=== PATIENT | female | born 1945 | race Caucasian/White ===

== ENCOUNTER → 2016-12-21 | Outpatient (CLI) | payer MEDICARE, OTHER ==
[~2016-12-21] MED LIST: ASPIRIN 81M81 MG/TA2 PO; B-121000 MCG PO; CEPHALEXIN500 M1 PO; COMPAZINE 110 MG/TAB PO; COZAAR 50MG50 MG/TAB PO; CRANBERRY500 M3 PO; FERRO-TIME325 MG PO; FLONASE NASAL S16 GM NS; HCTZ 25MG TAB25 MG PO; K-DUR20 MEQ PO; LEVAQUIN 750MG750 M1 PO; MIRALAX PA17 GM/Dose PO; MOBIC15 MG PO; MUCINEX 60600 MG/TA1 PO; NORVASC 10MG10 MG PO; NOXAFILTAB PO; OSTEO-BI-FLEX 21 TAB PO; PRAVACHOL10 MG PO; PRILOSEC 20MG20 MG PO; PROCRIT2000 SQ; REGLAN 10MG10 MG/TAB PO; SENNA-LAX8.6 MG PO; TYLENOL 325MG325 MG PO; ULTRAM 50MG TAB50 MG PO; VENCLEXTA100 MG PO; VERELAN180 MG PO; VIDAZA100 MG IV; VIDAZA100 MG SQ; VITAMIN C500 MG PO; ZOFRAN 4MG T4 MG/TAB PO; ZOVIRAX400 MG PO; ZYLOPRIM 300MG300 MG PO; [UNRECOGNIZED DRUG - OTHER] PO
== END ==
LOC: MC.RAD 08:45
DX: Z12.31 Encounter for screening mammogram for malignant neoplasm of breast (principal)

== ENCOUNTER 2018-01-20 07:04 | Outpatient (CLI) | payer MEDICARE, OTHER ==
[~2018-01-20] VITALS: Ht 172.7 cm; Wt 125.5 kg
[~2018-01-20 07:04] MED LIST changes: -B-121000 MCG PO; -CEPHALEXIN500 M1 PO; -COMPAZINE 110 MG/TAB PO; +CRANBERRY1 CAP PO; -CRANBERRY500 M3 PO; -FERRO-TIME325 MG PO; -K-DUR20 MEQ PO; -LEVAQUIN 750MG750 M1 PO; -MIRALAX PA17 GM/Dose PO; -MOBIC15 MG PO; -MUCINEX 60600 MG/TA1 PO; -NORVASC 10MG10 MG PO; -NOXAFILTAB PO; -PROCRIT2000 SQ; -SENNA-LAX8.6 MG PO; -ULTRAM 50MG TAB50 MG PO; -VENCLEXTA100 MG PO; -VIDAZA100 MG IV; -VIDAZA100 MG SQ; -ZOFRAN 4MG T4 MG/TAB PO; -ZOVIRAX400 MG PO; -ZYLOPRIM 300MG300 MG PO; -[UNRECOGNIZED DRUG - OTHER] PO
[2018-01-20] MEDS ORDERED: MOBIC15 MG PO (08:15)
[2018-01-20 09:40] VITALS: BP 134/71; PULSE 68; TEMP 98.4
[2018-01-20 10:03] VITALS: BP 129/62; PULSE 68; TEMP 98.4
[2018-01-20 10:18] VITALS: BP 136/72; PULSE 70; TEMP 98.4
[2018-01-20 10:33] VITALS: BP 132/62; PULSE 66; TEMP 98.4
[2018-01-20 11:00] VITALS: BP 132/62; PULSE 70; TEMP 98.4
[2018-01-20 12:48] LABS: BASO % 0.4 % (0.0-2.0); EOS % 0.6 % (0-4.0); GRAN # 2.8 (1.4-6.5); GRAN % 56.2 % (42.2-75.2); LYMPH # 1.7 (1.2-3.4); LYMPH % 34.8 % (20.0-51.0); MEAN CELL VOLUME 117 fl (80.0-100.0); MEAN CORPUSCULAR HEMOGLOBIN 39 pg (27.0-31.0); MEAN CORPUSCULAR HGB CONC 33 g/dl (33.0-37.0); MEAN PLATELET VOLUME 8.8 fl (7.4-10.4); MONO # 0.4 (0.1-0.6); MONO % 7.8 % (1.7-9.3); PLATELET COUNT 197 K/mm3 (130-400); RED BLOOD COUNT 2.57 M/mm3 (4.10-5.30); REDCELL DISTRIBUTION WIDTH-CV 12.4 % (11.5-14.5)
== END 2018-01-20 11:00 | disposition home or self-care (01) ==
LOC: SDCO 07:04
PROVIDERS: Pathology Anatomic Pathology & Clinical Pathology
DX: D72.829 Elevated white blood cell count, unspecified (principal); R71.8 Other abnormality of red blood cells; I10 Essential (primary) hypertension; E78.5 Hyperlipidemia, unspecified; M19.90 Unspecified osteoarthritis, unspecified site; Z88.0 Allergy status to penicillin; Z88.2 Allergy status to sulfonamides; Z88.8 Allergy status to other drugs, medicaments and biological substances; Z90.49 Acquired absence of other specified parts of digestive tract; Z80.8 Family history of malignant neoplasm of other organs or systems; Z80.3 Family history of malignant neoplasm of breast; Z80.49 Family history of malignant neoplasm of other genital organs
CPT/HCPCS: J2704; J3010

== ENCOUNTER → 2018-02-06 | Outpatient (CLI) | payer MEDICARE, OTHER ==
[~2018-02-06] MED LIST changes: +MOBIC15 MG PO
== END ==
LOC: MC.RAD 15:50
DX: Z12.31 Encounter for screening mammogram for malignant neoplasm of breast (principal)

== ENCOUNTER 2018-03-28 12:55 | Outpatient (RCR) | payer MEDICARE, OTHER ==
[2018-03-28] VITALS (11 sets, daily range): BP systolic 103–130; BP diastolic 42–87; PULSE 62–77; TEMP 97.3–98.5
[~2018-03-28] VITALS: Ht 172.7 cm; Wt 124.0 kg
[~2018-03-28 12:55] MED LIST changes: -CRANBERRY1 CAP PO; +CRANBERRY500 M3 PO
[2018-03-28] MEDS ORDERED: FERRO-TIME325 MG PO (13:48)
[2018-03-28] MEDS ORDERED: PROCRIT2000 SQ (13:49)
== END 2018-03-28 18:52 | disposition home or self-care (01) ==
LOC: EUO 12:55
DX: D46.9 Myelodysplastic syndrome, unspecified (principal)
CPT/HCPCS: J7050; P9016

== ENCOUNTER 2018-04-18 10:02 | Outpatient (RCR) | payer MEDICARE, OTHER ==
[2018-04-18] VITALS (10 sets, daily range): BP systolic 99–133; BP diastolic 47–65; PULSE 55–78; TEMP 97.7–97.8
[~2018-04-18] VITALS: Ht 172.7 cm; Wt 125.8 kg
[~2018-04-18 10:02] MED LIST changes: +FERRO-TIME325 MG PO; +PROCRIT2000 SQ
--- NOTE | 2018-04-18 12:09 | NUR ---
Increased rate to 200 ml/hr. VSS. Will continue to monitor
--- NOTE | 2018-04-18 15:44 | NUR ---
INT discontinued intact.
== END 2018-04-18 15:45 | disposition home or self-care (01) ==
LOC: EUO 10:02
DX: D53.9 Nutritional anemia, unspecified (principal); D46.Z Other myelodysplastic syndromes
CPT/HCPCS: J7050; P9016

== ENCOUNTER 2018-04-28 07:00 | Outpatient (CLI) | payer MEDICARE, OTHER ==
[~2018-04-28] VITALS: Ht 172.7 cm; Wt 124.5 kg
[2018-04-28 08:20] VITALS: BP 137/72; PULSE 76; TEMP 98
[2018-04-28 08:20] LABS: MEAN CELL VOLUME 105 fl (80.0-100.0); MEAN CORPUSCULAR HGB CONC 33 g/dl (33.0-37.0); MEAN PLATELET VOLUME 9.3 fl (7.4-10.4); PLATELET COUNT 50 K/mm3 (130-400); RED BLOOD COUNT 2.53 M/mm3 (4.10-5.30); REDCELL DISTRIBUTION WIDTH-CV 21.4 % (11.5-14.5)
[2018-04-28 08:21] LABS: HEMATOCRIT 26.6 % (37.0-47.0); HEMOGLOBIN 8.7 g/dl (12.5-16.0); MEAN CORPUSCULAR HEMOGLOBIN 34 pg (27.0-31.0)
--- NOTE | 2018-04-28 08:33 | NUR ---
Pt to procedure at this time.
[2018-04-28 08:38] LABS: EOSINOPHIL 4 % (0-4); LYMPHOCYTE 49 % (20.0-51.0); NEUTROPHILS 21 % (42.0-75.2)
[2018-04-28 08:39] LABS: ANISOCYTOSIS 2+; PLATELET ESTIMATE DECREASED (NORMAL)
[2018-04-28 09:21] VITALS: BP 132/68; PULSE 86
--- NOTE | 2018-04-28 09:28 | NUR ---
Pt returned from procedure,report from Nroman Torres.Pt observed alert and orientated x 3,respirations even and unlabored.
[2018-04-28 09:45] VITALS: BP 80/54; PULSE 73
[2018-04-28 10:00] VITALS: BP 118/62; PULSE 68
--- NOTE | 2018-04-28 10:14 | NUR ---
Discharge instructions given to pt.Pt verbalizes understanding.INT removed,catheter tip intact.
--- NOTE | 2018-04-28 10:24 | NUR ---
Pt escortedout via wheelchair by this nurse.
== END 2018-04-28 10:25 | disposition home or self-care (01) ==
LOC: SDCO 07:00
PROVIDERS: Pathology Anatomic Pathology & Clinical Pathology
DX: D72.821 Monocytosis (symptomatic) (principal); D61.818 Other pancytopenia; D53.9 Nutritional anemia, unspecified; M19.90 Unspecified osteoarthritis, unspecified site; E78.5 Hyperlipidemia, unspecified; I10 Essential (primary) hypertension; Z88.0 Allergy status to penicillin; Z88.2 Allergy status to sulfonamides; Z88.8 Allergy status to other drugs, medicaments and biological substances; Z87.891 Personal history of nicotine dependence
CPT/HCPCS: J2405; J2704; J3010; J7120

== ENCOUNTER 2018-05-09 09:26 | Outpatient (RCR) | payer MEDICARE, OTHER ==
[2018-05-09] VITALS (12 sets, daily range): BP systolic 110–145; BP diastolic 55–77; PULSE 67–83; TEMP 97.6–99
[2018-05-09] MEDS ORDERED: SENNA-LAX8.6 MG PO (11:21)
[2018-05-09] MEDS ORDERED: MIRALAX PA17 GM/Dose PO (11:22)
[2018-05-09] MEDS ORDERED: VIDAZA100 MG IV (11:25)
== END 2018-05-09 16:10 | disposition home or self-care (01) ==
LOC: EUO 09:26
DX: D46.Z Other myelodysplastic syndromes (principal); D53.9 Nutritional anemia, unspecified
CPT/HCPCS: J7050; P9016

== ENCOUNTER 2018-05-20 14:24 | Outpatient (RCR) | payer MEDICARE, OTHER ==
[~2018-05-20] VITALS: Ht 172.7 cm; Wt 124.7 kg
[~2018-05-20 14:24] MED LIST changes: +MIRALAX PA17 GM/Dose PO; +SENNA-LAX8.6 MG PO; +VIDAZA100 MG IV
[2018-05-20 16:01] VITALS: BP 128/61; PULSE 84; TEMP 98.5
[2018-05-20 16:19] VITALS: BP 113/72; PULSE 86; TEMP 98.7
[2018-05-20 16:34] VITALS: BP 118/55; PULSE 80; TEMP 98.5
[2018-05-20 17:02] VITALS: BP 112/49; PULSE 80; TEMP 98.3
== END 2018-05-20 17:03 | disposition home or self-care (01) ==
LOC: EUO 14:24
DX: D46.20 Refractory anemia with excess of blasts, unspecified (principal)
CPT/HCPCS: J7050; P9037

== ENCOUNTER 2018-06-09 07:27 | Outpatient (CLI) | payer MEDICARE, OTHER | END 2018-06-09 11:50 | disposition home or self-care (01) | LOC: SDCO 07:27 | DX: D69.6 Thrombocytopenia, unspecified (principal); D53.9 Nutritional anemia, unspecified; C92.00 Acute myeloblastic leukemia, not having achieved remission; D61.818 Other pancytopenia; D46.9 Myelodysplastic syndrome, unspecified; M19.90 Unspecified osteoarthritis, unspecified site; E78.5 Hyperlipidemia, unspecified; I10 Essential (primary) hypertension; K21.9 Gastro-esophageal reflux disease without esophagitis; M54.30 Sciatica, unspecified side; Z87.891 Personal history of nicotine dependence; Z79.82 Long term (current) use of aspirin ==

== ENCOUNTER 2018-08-04 06:58 | Outpatient (CLI) | payer MEDICARE, OTHER ==
[~2018-08-04] VITALS: Ht 175.4 cm; Wt 118.0 kg
[~2018-08-04 06:58] MED LIST changes: +MUCINEX 60600 MG/TA1 PO; +VENCLEXTA100 MG PO; +ZOFRAN 4MG T4 MG/TAB PO; +ZOVIRAX400 MG PO; +ZYLOPRIM 300MG300 MG PO; +[UNRECOGNIZED DRUG - OTHER] PO
[2018-08-04 08:30] VITALS: BP 136/57; PULSE 82; TEMP 98.4
[2018-08-04] MEDS ORDERED: COMPAZINE 110 MG/TAB PO (08:43)
[2018-08-04] MEDS ORDERED: VIDAZA100 MG SQ (08:44)
[2018-08-04] MEDS ORDERED: PRILOSEC 20MG20 MG PO (08:46)
--- NOTE | 2018-08-04 08:47 | NUR ---
Reported to [facility] nurse platelet of 14 this am.
--- NOTE | 2018-08-04 08:54 | NUR ---
Pt to procedure at this time.
[2018-08-04 09:38] VITALS: BP 138/72; PULSE 89
[2018-08-04 09:55] VITALS: BP 122/63; PULSE 77
[2018-08-04 10:06] VITALS: BP 128/64; PULSE 63
[2018-08-04 10:20] VITALS: BP 127/74; PULSE 76
--- NOTE | 2018-08-04 10:21 | NUR ---
Discharge instructions given to pt.Pt verbalizes understanding.Pt escorted out via wheelchair by this nurse.
== END 2018-08-04 10:23 | disposition home or self-care (01) ==
LOC: EUO 06:58 → SDCO 09:00 → EUO 10:23
DX: C92.00 Acute myeloblastic leukemia, not having achieved remission (principal); D46.9 Myelodysplastic syndrome, unspecified; M19.90 Unspecified osteoarthritis, unspecified site; I10 Essential (primary) hypertension; E78.5 Hyperlipidemia, unspecified; K21.9 Gastro-esophageal reflux disease without esophagitis; Z79.82 Long term (current) use of aspirin; Z79.51 Long term (current) use of inhaled steroids; Z88.0 Allergy status to penicillin; Z88.2 Allergy status to sulfonamides; Z88.8 Allergy status to other drugs, medicaments and biological substances; Z90.49 Acquired absence of other specified parts of digestive tract
CPT/HCPCS: J2704; J3010; J7120

== ENCOUNTER 2018-08-18 09:00 | Outpatient (RCR) | payer MEDICARE, OTHER ==
--- NOTE | 2018-05-22 10:45 | NUR ---
Pt requests to come saturday for transfusion.Scheduled at 0830.
--- NOTE | 2018-05-22 11:32 | NUR ---
Per lab blood has to be ordered,pending arrival tomorrow at 1200.
[2018-05-23] VITALS (9 sets, daily range): BP systolic 109–128; BP diastolic 47–65; PULSE 82–95; TEMP 97.9–99
[2018-05-24 12:09] VITALS: PULSE 82; TEMP 99
--- NOTE | 2018-05-24 12:19 | NUR ---
Called blood bank, awaiting platelets. Per Salomon gave pre-medicaitons. Pt has 20G to LW. IVF infusing at slow rate until platelets arrive. Will continue to monitor.
[2018-05-24 15:57] VITALS: BP 94/50; PULSE 81; TEMP 98.7
--- NOTE | 2018-05-24 16:00 | NUR ---
Initiated platelet transfusion at this time. pT in bed resting with IV to R forearm and at bedside. Verified with 2nd RN. PT educated on s/sx of a transfusion reaction. Several hours of delays today d/t miscommunications with the [facility] but Systems Operator, family, patient and Dr. Latif up to date and pt has been a fantastic sport today waiting for these platelets to arrive for about 5+ hours. WIll transfuse and wait for first 15 minutes.
[2018-05-24 16:12] VITALS: BP 103/46; PULSE 60; TEMP 98.4
[2018-05-24 16:42] VITALS: BP 113/48; PULSE 78; TEMP 98.7
--- NOTE | 2018-05-24 17:40 | NUR ---
Pt escorted out by myself. Dc'd INT to LW, tip intact. Pt had no s/sx of a transfusion reaction, tolerated well. to drive home. Left with all belongings, criteria met.
[2018-05-27] VITALS (8 sets, daily range): BP systolic 91–123; BP diastolic 43–75; PULSE 80–84; TEMP 97.4–98.2
--- NOTE | 2018-05-29 13:00 | NUR ---
PICC intact right upper arm with sterile dressing change done with insertion site cleansed with chloraprep x 1, chlorhexidine impregnated disk, skin prep, stat lock, and tegaderm applied. no signs or symptoms of IV complications noted. no concerns voiced. re-wrapped with tong to protect catheter. to return next week for cares. voiced understanding of instructions.
[2018-05-29 13:14] VITALS: BP 125/50; PULSE 97; TEMP 98.6
[2018-05-29 13:19] LABS: MEAN CELL VOLUME 96 fl (80.0-100.0); MEAN CORPUSCULAR HGB CONC 34 g/dl (33.0-37.0); MEAN PLATELET VOLUME 11.3 fl (7.4-10.4); RED BLOOD COUNT 2.24 M/mm3 (4.10-5.30); REDCELL DISTRIBUTION WIDTH-CV 19.3 % (11.5-14.5)
[2018-05-29 13:27] LABS: ALBUMIN 3.4 gm/dL (3.5-5.0); BILIRUBIN,TOTAL 0.5 mg/dL (0.0-1.0); CALCIUM 8.4 mg/dL (8.4-10.2); CREATININE, serum 0.83 mg/dL (0.52-1.25); POTASSIUM 4.3 mmol/L (3.4-5.0); TOTAL PROTEIN 6.7 gm/dL (6.4-8.2)
[2018-05-29 13:29] LABS: HEMATOCRIT 21.4 % (37.0-47.0); HEMOGLOBIN 7.2 g/dl (12.5-16.0); MEAN CORPUSCULAR HEMOGLOBIN 32 pg (27.0-31.0)
[2018-05-29 13:30] LABS: PLATELET COUNT 19 K/mm3 (130-400)
[2018-05-29 13:49] LABS: BAND 12 % (0-10); LYMPHOCYTE 47 % (20.0-51.0); METAMYELOCYTE 2 % (0-0); NEUTROPHILS 21 % (42.0-75.2)
[2018-05-29 13:50] LABS: ANISOCYTOSIS 1+; PLATELET ESTIMATE DECREASED (NORMAL)
[2018-05-29 13:52] LABS: HYPOCHROMIA 1+
[2018-05-30] VITALS (10 sets, daily range): BP systolic 113–126; BP diastolic 49–58; PULSE 78–91; TEMP 97.2
[2018-05-30 08:45] LABS: PATHOLOGY DIFF REVIEW OK
[2018-06-02 08:30] VITALS: BP 148/72; PULSE 79; TEMP 98.1
[2018-06-02 08:31] LABS: MEAN CELL VOLUME 92 fl (80.0-100.0); MEAN CORPUSCULAR HGB CONC 34 g/dl (33.0-37.0); MEAN PLATELET VOLUME 9.3 fl (7.4-10.4); RED BLOOD COUNT 2.79 M/mm3 (4.10-5.30); REDCELL DISTRIBUTION WIDTH-CV 17.5 % (11.5-14.5)
[2018-06-02 08:32] LABS: HEMATOCRIT 25.7 % (37.0-47.0); HEMOGLOBIN 8.7 g/dl (12.5-16.0); MEAN CORPUSCULAR HEMOGLOBIN 31 pg (27.0-31.0)
[2018-06-02 08:36] LABS: PLATELET COUNT 9 K/mm3 (130-400)
[2018-06-02 08:51] LABS: ANISOCYTOSIS 1+; BAND 2 % (0-10); LYMPHOCYTE 45 % (20.0-51.0); NEUTROPHILS 28 % (42.0-75.2); PLATELET ESTIMATE DECREASED (NORMAL)
[2018-06-03 14:33] VITALS: BP 131/66; PULSE 72; TEMP 98.1
[2018-06-03 14:51] VITALS: BP 130/70; PULSE 68; TEMP 97.5
[2018-06-03 15:06] VITALS: BP 138/67; PULSE 70; TEMP 98.1
[2018-06-03 15:36] VITALS: BP 134/69; PULSE 74; TEMP 97.8
[2018-06-05 08:33] LABS: HEMATOCRIT 23.5 % (37.0-47.0); HEMOGLOBIN 7.8 g/dl (12.5-16.0); MEAN CELL VOLUME 93 fl (80.0-100.0); MEAN CORPUSCULAR HEMOGLOBIN 31 pg (27.0-31.0); MEAN CORPUSCULAR HGB CONC 33 g/dl (33.0-37.0); MEAN PLATELET VOLUME 10.3 fl (7.4-10.4); RED BLOOD COUNT 2.53 M/mm3 (4.10-5.30); REDCELL DISTRIBUTION WIDTH-CV 16.9 % (11.5-14.5)
[2018-06-05 08:34] LABS: PLATELET COUNT 9 K/mm3 (130-400)
[2018-06-05 08:39] LABS: MAGNESIUM 1.8 mg/dL (1.6-2.3); URIC ACID 4.4 mg/dL (2.5-6.2)
[2018-06-05 08:40] LABS: ALBUMIN 3.6 gm/dL (3.5-5.0); BILIRUBIN,TOTAL 0.5 mg/dL (0.0-1.0); CALCIUM 8.8 mg/dL (8.4-10.2); CREATININE, serum 0.79 mg/dL (0.52-1.25); POTASSIUM 3.8 mmol/L (3.4-5.0)
[2018-06-05 08:56] VITALS: BP 125/63; PULSE 79; TEMP 98
[2018-06-05 09:44] LABS: ANISOCYTOSIS 1+; BAND 5 % (0-10); EOSINOPHIL 5 % (0-4); LYMPHOCYTE 42 % (20.0-51.0); NEUTROPHILS 21 % (42.0-75.2); PLATELET ESTIMATE DECREASED (NORMAL); ROULEAUX 1+
[2018-06-06 13:39] VITALS: BP 124/53; PULSE 99; TEMP 98.5
[2018-06-06 13:54] VITALS: BP 129/45; PULSE 79; TEMP 97.8
[2018-06-06 14:09] VITALS: BP 116/51; PULSE 78; TEMP 97.1
[2018-06-06 14:39] VITALS: BP 122/53; PULSE 75; TEMP 97.2
[2018-06-06 15:03] VITALS: BP 122/51; PULSE 76; TEMP 97.3
--- NOTE | 2018-06-06 15:10 | NUR ---
Pt ramsey platelets well. Pt discharged per ambulation with .
[2018-06-09 07:54] LABS: MEAN CELL VOLUME 91 fl (80.0-100.0); MEAN CORPUSCULAR HGB CONC 34 g/dl (33.0-37.0); RED BLOOD COUNT 2.29 M/mm3 (4.10-5.30); REDCELL DISTRIBUTION WIDTH-CV 16.6 % (11.5-14.5)
[2018-06-09 08:01] VITALS: BP 124/68; PULSE 85; TEMP 98.4
[2018-06-09 08:24] LABS: HEMATOCRIT 20.9 % (37.0-47.0); HEMOGLOBIN 7.1 g/dl (12.5-16.0); MEAN CORPUSCULAR HEMOGLOBIN 31 pg (27.0-31.0)
[2018-06-09 08:25] LABS: PLATELET COUNT 12 K/mm3 (130-400)
[2018-06-09 10:21] LABS: BAND 17 % (0-10); EOSINOPHIL 3 % (0-4); LYMPHOCYTE 44 % (20.0-51.0); NEUTROPHILS 18 % (42.0-75.2)
[2018-06-09 10:30] LABS: PLATELET ESTIMATE DECREASED (NORMAL)
[2018-06-09 10:31] LABS: ANISOCYTOSIS 1+
[2018-06-10] VITALS (11 sets, daily range): BP systolic 107–128; BP diastolic 47–65; PULSE 78–97; TEMP 98–98.7
--- NOTE | 2018-06-10 14:38 | NUR ---
Report received from Norman Apple.
[2018-06-12 08:13] VITALS: BP 128/62; PULSE 81; TEMP 98.5
--- NOTE | 2018-06-12 15:05 | NUR ---
here for cares. With sterile technique right upper arm PICC dressing change done with insertion site cleansed with ChloraPrep 1, chlorhexidine impregnated disc applied, skin prep, StatLock, and Tegaderm applied. No signs or symptoms of IV complications noted. No concerns voiced. Arm wrapped with Davonte to protect catheter. Patient to return next week for cares. Patient voiced understanding of instructions.
[2018-06-13 14:51] LABS: MEAN CELL VOLUME 90 fl (80.0-100.0); MEAN CORPUSCULAR HGB CONC 34 g/dl (33.0-37.0); MEAN PLATELET VOLUME 10.4 fl (7.4-10.4); RED BLOOD COUNT 2.75 M/mm3 (4.10-5.30); REDCELL DISTRIBUTION WIDTH-CV 15.5 % (11.5-14.5)
[2018-06-13 14:52] LABS: HEMATOCRIT 24.7 % (37.0-47.0); HEMOGLOBIN 8.5 g/dl (12.5-16.0); MEAN CORPUSCULAR HEMOGLOBIN 31 pg (27.0-31.0)
[2018-06-13 14:53] LABS: PLATELET COUNT 15 K/mm3 (130-400)
[2018-06-13 14:54] LABS: HYPOCHROMIA 1+; LYMPHOCYTE 53 % (20.0-51.0); NEUTROPHILS 27 % (42.0-75.2); PLATELET ESTIMATE DECREASED (NORMAL)
[2018-06-13 15:49] LABS: ALBUMIN 3.6 gm/dL (3.5-5.0); BILIRUBIN,TOTAL 0.6 mg/dL (0.0-1.0); CALCIUM 8.6 mg/dL (8.4-10.2); CREATININE, serum 0.78 mg/dL (0.52-1.25); MAGNESIUM 1.8 mg/dL (1.6-2.3); POTASSIUM 3.7 mmol/L (3.4-5.0); TOTAL PROTEIN 6.8 gm/dL (6.4-8.2); URIC ACID 4.5 mg/dL (2.5-6.2)
--- NOTE | 2018-06-16 08:10 | NUR ---
patient here for lab draw. PICC intact right upper arm. No signs or symptoms of IV complications noted. Patient reports rare feeling of the bee sting when she moves her arm a certain way. Advised patient catheter might be up against the nerve. Advised to apply warm moist pack. Patient to continue to monitor and report if discomfort increases and or if she becomes more concerned with bee sting feeling. Patient voiced understanding of instructions.
[2018-06-16 08:31] LABS: MEAN CELL VOLUME 90 fl (80.0-100.0); MEAN CORPUSCULAR HGB CONC 34 g/dl (33.0-37.0); MEAN PLATELET VOLUME 10.1 fl (7.4-10.4); RED BLOOD COUNT 2.45 M/mm3 (4.10-5.30)
[2018-06-16 08:43] VITALS: BP 138/70; PULSE 81; TEMP 98.4
[2018-06-16 08:43] LABS: HEMATOCRIT 22.1 % (37.0-47.0); HEMOGLOBIN 7.5 g/dl (12.5-16.0); MEAN CORPUSCULAR HEMOGLOBIN 31 pg (27.0-31.0)
[2018-06-16 08:44] LABS: PLATELET COUNT 21 K/mm3 (130-400)
[2018-06-16 09:10] LABS: BAND 10 % (0-10); EOSINOPHIL 5 % (0-4); LYMPHOCYTE 49 % (20.0-51.0); METAMYELOCYTE 2 % (0-0); NEUTROPHILS 14 % (42.0-75.2)
[2018-06-16 09:11] LABS: HYPOCHROMIA 1+; PLATELET ESTIMATE DECREASED (NORMAL)
--- NOTE | 2018-06-19 08:00 | NUR ---
Here for PICC cares. with sterile technique right upper arm PICC dressing change done with insertion site cleansed with chloraprep x 1, impregnated chlorhexidine disk applied, skin prep, stat lock, and tegaderm applied. no signs or symptoms of IV complications noted. no concerns voiced. re-wrapped with tong to protect catheter. to return next week for cares. voiced understanding of instructions.
[2018-06-19 08:14] VITALS: BP 148/61; PULSE 81; TEMP 98.3
[2018-06-19 08:41] LABS: ALBUMIN 3.5 gm/dL (3.5-5.0); BILIRUBIN,TOTAL 0.4 mg/dL (0.0-1.0); CALCIUM 8.4 mg/dL (8.4-10.2); CREATININE, serum 0.81 mg/dL (0.52-1.25); MAGNESIUM 1.9 mg/dL (1.6-2.3); POTASSIUM 3.5 mmol/L (3.4-5.0); TOTAL PROTEIN 6.8 gm/dL (6.4-8.2); URIC ACID 5.2 mg/dL (2.5-6.2)
[2018-06-19 08:50] LABS: MEAN CELL VOLUME 89 fl (80.0-100.0); MEAN CORPUSCULAR HGB CONC 34 g/dl (33.0-37.0); MEAN PLATELET VOLUME 10.4 fl (7.4-10.4); RED BLOOD COUNT 2.41 M/mm3 (4.10-5.30); REDCELL DISTRIBUTION WIDTH-CV 14.8 % (11.5-14.5)
[2018-06-19 08:53] LABS: HEMATOCRIT 21.4 % (37.0-47.0); HEMOGLOBIN 7.3 g/dl (12.5-16.0); MEAN CORPUSCULAR HEMOGLOBIN 30 pg (27.0-31.0)
[2018-06-19 08:55] LABS: PLATELET COUNT 28 K/mm3 (130-400)
[2018-06-19 09:47] LABS: BAND 13 % (0-10); EOSINOPHIL 6 % (0-4); NEUTROPHILS 14 % (42.0-75.2)
[2018-06-19 09:48] LABS: LYMPHOCYTE 43 % (20.0-51.0); PLATELET ESTIMATE DECREASED (NORMAL)
[2018-06-20 10:00] LABS: PATHOLOGY DIFF REVIEW OK +
[2018-06-23 08:17] VITALS: BP 133/62; PULSE 87; TEMP 97.9
[2018-06-23 08:18] LABS: MEAN CELL VOLUME 89 fl (80.0-100.0); MEAN CORPUSCULAR HGB CONC 35 g/dl (33.0-37.0); MEAN PLATELET VOLUME 9.8 fl (7.4-10.4); RED BLOOD COUNT 2.53 M/mm3 (4.10-5.30); REDCELL DISTRIBUTION WIDTH-CV 14.6 % (11.5-14.5)
[2018-06-23 08:23] LABS: HEMATOCRIT 22.5 % (37.0-47.0); HEMOGLOBIN 7.8 g/dl (12.5-16.0); MEAN CORPUSCULAR HEMOGLOBIN 31 pg (27.0-31.0)
--- NOTE | 2018-06-23 08:24 | NUR ---
Critical lab result called to this nurse by Aviva from lab. Called lab results to Maria M at [facility].
[2018-06-23 08:25] LABS: PLATELET COUNT 24 K/mm3 (130-400)
[2018-06-23 09:49] LABS: BAND 7 % (0-10); EOSINOPHIL 1 % (0-4); LYMPHOCYTE 54 % (20.0-51.0); METAMYELOCYTE 1 % (0-0); NEUTROPHILS 19 % (42.0-75.2); PLATELET ESTIMATE DECREASED (NORMAL)
[2018-06-23 09:50] LABS: HYPOCHROMIA 1+
[2018-06-26 07:41] VITALS: BP 115/54; PULSE 68; TEMP 97.6
[2018-06-26 07:48] LABS: MEAN CELL VOLUME 90 fl (80.0-100.0); MEAN CORPUSCULAR HGB CONC 34 g/dl (33.0-37.0); MEAN PLATELET VOLUME 10.1 fl (7.4-10.4); RED BLOOD COUNT 1.99 M/mm3 (4.10-5.30); REDCELL DISTRIBUTION WIDTH-CV 14.6 % (11.5-14.5)
--- NOTE | 2018-06-26 07:50 | NUR ---
Here for cares. with sterile technique right upper arm PICC dressing change done with insertion site cleansed with chloraprep x 1, chlorhexidine impregnated disk applied. skin prep, stat lock, and tegaderm applied. no signs or symptoms of IV complications noted. no concerns voiced. re-wrapped with tong to protect catheter.
[2018-06-26 08:01] LABS: HEMATOCRIT 17.9 % (37.0-47.0); HEMOGLOBIN 6.1 g/dl (12.5-16.0); MEAN CORPUSCULAR HEMOGLOBIN 31 pg (27.0-31.0)
[2018-06-26 08:03] LABS: PLATELET COUNT 28 K/mm3 (130-400)
[2018-06-26 08:04] LABS: ALBUMIN 3.3 gm/dL (3.5-5.0); BILIRUBIN,TOTAL 0.2 mg/dL (0.0-1.0); CALCIUM 8.4 mg/dL (8.4-10.2); CREATININE, serum 0.84 mg/dL (0.52-1.25); POTASSIUM 3.9 mmol/L (3.4-5.0); TOTAL PROTEIN 6.2 gm/dL (6.4-8.2); URIC ACID 5.2 mg/dL (2.5-6.2)
[2018-06-26 09:11] LABS: BAND 8 % (0-10); LYMPHOCYTE 39 % (20.0-51.0); NEUTROPHILS 29 % (42.0-75.2)
[2018-06-26 09:12] LABS: ANISOCYTOSIS 1+; PLATELET ESTIMATE DECREASED (NORMAL)
[2018-06-26 09:14] LABS: HYPOCHROMIA 1+
[2018-06-27] VITALS (9 sets, daily range): BP systolic 131–139; BP diastolic 61–87; PULSE 59–73; TEMP 96.9–98.4
[2018-06-30 08:16] VITALS: BP 106/55; PULSE 71; TEMP 98.2
[2018-06-30 08:35] LABS: MEAN CELL VOLUME 88 fl (80.0-100.0); MEAN CORPUSCULAR HGB CONC 33 g/dl (33.0-37.0); MEAN PLATELET VOLUME 9.8 fl (7.4-10.4); RED BLOOD COUNT 2.69 M/mm3 (4.10-5.30); REDCELL DISTRIBUTION WIDTH-CV 14.5 % (11.5-14.5)
[2018-06-30 08:37] LABS: HEMATOCRIT 23.7 % (37.0-47.0); HEMOGLOBIN 7.9 g/dl (12.5-16.0); MEAN CORPUSCULAR HEMOGLOBIN 29 pg (27.0-31.0); PLATELET COUNT 24 K/mm3 (130-400)
[2018-06-30 11:38] LABS: BAND 1 % (0-10); EOSINOPHIL 1 % (0-4); LYMPHOCYTE 61 % (20.0-51.0); NEUTROPHILS 24 % (42.0-75.2); PLATELET ESTIMATE DECREASED (NORMAL)
[2018-06-30 11:39] LABS: HYPOCHROMIA 1+; MICROCYTOSIS 1+
--- NOTE | 2018-07-03 08:00 | NUR ---
Here for PICC cares. With sterile technique right upper arm PICC dressing change done with insertion site cleansed with ChloraPrep 1, chlorhexidine impregnated disc applied, skin prep, StatLock, and Tegaderm applied. No signs or symptoms of IV complications noted. No concerns voiced. Arm wrapped with Davonte to protect catheter. Patient to return on Saturday for lab draw. Patient voiced understanding of instructions.
[2018-07-03 08:25] VITALS: BP 103/53; PULSE 90; TEMP 98.2
[2018-07-03 08:28] LABS: MEAN CELL VOLUME 89 fl (80.0-100.0); MEAN CORPUSCULAR HGB CONC 34 g/dl (33.0-37.0); MEAN PLATELET VOLUME 9.3 fl (7.4-10.4); RED BLOOD COUNT 2.53 M/mm3 (4.10-5.30)
[2018-07-03 08:36] LABS: ALBUMIN 3.2 gm/dL (3.5-5.0); BILIRUBIN,TOTAL 0.4 mg/dL (0.0-1.0); CALCIUM 8.4 mg/dL (8.4-10.2); CREATININE, serum 0.76 mg/dL (0.52-1.25); MAGNESIUM 1.8 mg/dL (1.6-2.3); POTASSIUM 3.7 mmol/L (3.4-5.0); URIC ACID 5.7 mg/dL (2.5-6.2)
[2018-07-03 08:39] LABS: HEMATOCRIT 22.5 % (37.0-47.0); HEMOGLOBIN 7.6 g/dl (12.5-16.0); MEAN CORPUSCULAR HEMOGLOBIN 30 pg (27.0-31.0)
[2018-07-03 08:40] LABS: PLATELET COUNT 16 K/mm3 (130-400)
[2018-07-03 09:02] LABS: PLATELET ESTIMATE DECREASED (NORMAL)
[2018-07-03 10:39] LABS: BAND 7 % (0-10); NEUTROPHILS 29 % (42.0-75.2)
[2018-07-03 10:40] LABS: LYMPHOCYTE 32 % (20.0-51.0)
[2018-07-03 10:47] LABS: PATHOLOGY DIFF REVIEW OK
[2018-07-04 09:17] VITALS: BP 113/47; PULSE 86; TEMP 98.2
[2018-07-04 09:19] LABS: MEAN CELL VOLUME 89 fl (80.0-100.0); MEAN CORPUSCULAR HGB CONC 34 g/dl (33.0-37.0); MEAN PLATELET VOLUME 10.3 fl (7.4-10.4); RED BLOOD COUNT 2.54 M/mm3 (4.10-5.30); REDCELL DISTRIBUTION WIDTH-CV 14.2 % (11.5-14.5)
[2018-07-04 09:27] LABS: HEMATOCRIT 22.6 % (37.0-47.0); HEMOGLOBIN 7.6 g/dl (12.5-16.0); MEAN CORPUSCULAR HEMOGLOBIN 30 pg (27.0-31.0)
[2018-07-04 09:28] LABS: PLATELET COUNT 14 K/mm3 (130-400)
[2018-07-04 12:20] LABS: BAND 9 % (0-10); EOSINOPHIL 1 % (0-4); LYMPHOCYTE 28 % (20.0-51.0); NEUTROPHILS 32 % (42.0-75.2); OVALOCYTES 1+; PLATELET ESTIMATE DECREASED (NORMAL)
[2018-07-07 08:19] VITALS: BP 106/61; PULSE 96; TEMP 98.7
[2018-07-07 08:26] LABS: MEAN CELL VOLUME 89 fl (80.0-100.0); MEAN CORPUSCULAR HGB CONC 34 g/dl (33.0-37.0); MEAN PLATELET VOLUME 10.1 fl (7.4-10.4); RED BLOOD COUNT 2.16 M/mm3 (4.10-5.30); REDCELL DISTRIBUTION WIDTH-CV 13.9 % (11.5-14.5)
[2018-07-07 08:38] LABS: HEMATOCRIT 19.2 % (37.0-47.0); HEMOGLOBIN 6.5 g/dl (12.5-16.0); MEAN CORPUSCULAR HEMOGLOBIN 30 pg (27.0-31.0); PLATELET COUNT 12 K/mm3 (130-400)
[2018-07-07 10:44] LABS: BAND 8 % (0-10); EOSINOPHIL 1 % (0-4); LYMPHOCYTE 48 % (20.0-51.0); NEUTROPHILS 18 % (42.0-75.2); PLATELET ESTIMATE DECREASED (NORMAL)
[2018-07-08] VITALS (13 sets, daily range): BP systolic 87–134; BP diastolic 53–80; PULSE 81–98; TEMP 98.1–99
--- NOTE | 2018-07-08 16:57 | NUR ---
Report received from Norman Potter.
--- NOTE | 2018-07-10 08:20 | NUR ---
PICC intact right upper arm. With sterile technique right upper arm PICC dressing change done with insertion site cleansed with ChloraPrep 1, chlorhexidine impregnated disc applied, have, StatLock, and Tegaderm applied. No signs or symptoms of IV complications noted. No concerns voiced. Arm wrapped with Davonte to protect catheter. Patient to return next week as directed for cares. Patient voiced understanding of instructions.
[2018-07-10 08:24] VITALS: BP 109/61; PULSE 77; TEMP 98.2
[2018-07-10 08:26] LABS: ALBUMIN 3.3 gm/dL (3.5-5.0); BILIRUBIN,TOTAL 0.4 mg/dL (0.0-1.0); CALCIUM 8.3 mg/dL (8.4-10.2); CREATININE, serum 0.76 (0.52-1.25); MAGNESIUM 1.9 mg/dL (1.6-2.3); POTASSIUM 3.7 mmol/L (3.4-5.0); TOTAL PROTEIN 6.3 gm/dL (6.4-8.2); URIC ACID 5.1 mg/dL (2.5-6.2)
[2018-07-10 08:40] LABS: MEAN CELL VOLUME 86 fl (80.0-100.0); MEAN CORPUSCULAR HGB CONC 34 g/dl (33.0-37.0); MEAN PLATELET VOLUME 9.9 fl (7.4-10.4); RED BLOOD COUNT 2.67 M/mm3 (4.10-5.30); REDCELL DISTRIBUTION WIDTH-CV 13.9 % (11.5-14.5)
[2018-07-10 08:57] LABS: HEMOGLOBIN 7.9 g/dl (12.5-16.0); MEAN CORPUSCULAR HEMOGLOBIN 30 pg (27.0-31.0)
[2018-07-10 08:58] LABS: PLATELET COUNT 12 K/mm3 (130-400)
[2018-07-10 11:27] LABS: BAND 6 % (0-10); EOSINOPHIL 1 % (0-4); LYMPHOCYTE 57 % (20.0-51.0); NEUTROPHILS 17 % (42.0-75.2); PLATELET ESTIMATE DECREASED (NORMAL)
[2018-07-14 09:06] VITALS: BP 133/62; PULSE 102; TEMP 97.9
[2018-07-14 09:14] LABS: MEAN CELL VOLUME 86 fl (80.0-100.0); MEAN CORPUSCULAR HGB CONC 34 g/dl (33.0-37.0); MEAN PLATELET VOLUME 9.6 fl (7.4-10.4); RED BLOOD COUNT 2.65 M/mm3 (4.10-5.30); REDCELL DISTRIBUTION WIDTH-CV 13.2 % (11.5-14.5)
[2018-07-14 09:32] LABS: HEMATOCRIT 22.9 % (37.0-47.0); HEMOGLOBIN 7.8 g/dl (12.5-16.0); MEAN CORPUSCULAR HEMOGLOBIN 29 pg (27.0-31.0)
[2018-07-14 09:33] LABS: PLATELET COUNT 24 K/mm3 (130-400)
[2018-07-14 11:04] LABS: BAND 9 % (0-10); NEUTROPHILS 16 % (42.0-75.2)
[2018-07-14 11:05] LABS: PLATELET ESTIMATE DECREASED (NORMAL)
[2018-07-14 11:06] LABS: LYMPHOCYTE 40 % (20.0-51.0)
[2018-07-17 08:25] LABS: MEAN CELL VOLUME 86 fl (80.0-100.0); MEAN CORPUSCULAR HGB CONC 33 g/dl (33.0-37.0); MEAN PLATELET VOLUME 10.1 fl (7.4-10.4); RED BLOOD COUNT 2.41 M/mm3 (4.10-5.30); REDCELL DISTRIBUTION WIDTH-CV 13.2 % (11.5-14.5)
[2018-07-17 08:31] LABS: HEMATOCRIT 20.8 % (37.0-47.0); HEMOGLOBIN 6.9 g/dl (12.5-16.0); MEAN CORPUSCULAR HEMOGLOBIN 29 pg (27.0-31.0); PLATELET COUNT 31 K/mm3 (130-400)
[2018-07-17 08:32] LABS: ALBUMIN 3.4 gm/dL (3.5-5.0); BILIRUBIN,TOTAL 0.3 mg/dL (0.0-1.0); CALCIUM 8.7 mg/dL (8.4-10.2); CREATININE, serum 0.85 (0.52-1.25); MAGNESIUM 1.8 mg/dL (1.6-2.3); POTASSIUM 3.9 mmol/L (3.4-5.0); TOTAL PROTEIN 6.4 gm/dL (6.4-8.2)
[2018-07-17 08:34] VITALS: BP 119/66; PULSE 73; TEMP 98.4
[2018-07-17 09:01] LABS: BAND 21 % (0-10); LYMPHOCYTE 32 % (20.0-51.0); METAMYELOCYTE 1 % (0-0); NEUTROPHILS 19 % (42.0-75.2)
[2018-07-17 09:02] LABS: PLATELET ESTIMATE DECREASED (NORMAL)
[2018-07-18] VITALS (9 sets, daily range): BP systolic 105–119; BP diastolic 48–62; PULSE 68–94; TEMP 98–98.8
--- NOTE | 2018-07-18 16:24 | NUR ---
Report to Christal Parikh RN who assumed care at this time.
--- NOTE | 2018-07-18 16:57 | NUR ---
Flushed and re-wrapped PICC line
[2018-07-21 08:21] LABS: MEAN CELL VOLUME 87 fl (80.0-100.0); MEAN CORPUSCULAR HGB CONC 34 g/dl (33.0-37.0); MEAN PLATELET VOLUME 9.8 fl (7.4-10.4); RED BLOOD COUNT 2.84 M/mm3 (4.10-5.30); REDCELL DISTRIBUTION WIDTH-CV 13.1 % (11.5-14.5)
[2018-07-21 08:22] LABS: HEMATOCRIT 24.7 % (37.0-47.0); HEMOGLOBIN 8.3 g/dl (12.5-16.0); MEAN CORPUSCULAR HEMOGLOBIN 29 pg (27.0-31.0)
[2018-07-21 08:23] VITALS: BP 133/69; PULSE 75; TEMP 98.2
[2018-07-21 08:23] LABS: PLATELET COUNT 29 K/mm3 (130-400)
[2018-07-21 09:29] LABS: EOSINOPHIL 1 % (0-4); LYMPHOCYTE 34 % (20.0-51.0); NEUTROPHILS 52 % (42.0-75.2)
[2018-07-21 09:30] LABS: PLATELET ESTIMATE DECREASED (NORMAL)
[2018-07-24 08:30] VITALS: BP 123/64; PULSE 60; TEMP 97.5
[2018-07-24 08:34] LABS: MEAN CELL VOLUME 87 fl (80.0-100.0); MEAN CORPUSCULAR HGB CONC 34 g/dl (33.0-37.0); MEAN PLATELET VOLUME 10.2 fl (7.4-10.4); RED BLOOD COUNT 2.84 M/mm3 (4.10-5.30); REDCELL DISTRIBUTION WIDTH-CV 13.1 % (11.5-14.5)
[2018-07-24 08:36] LABS: HEMATOCRIT 24.7 % (37.0-47.0); HEMOGLOBIN 8.3 g/dl (12.5-16.0); MEAN CORPUSCULAR HEMOGLOBIN 29 pg (27.0-31.0)
[2018-07-24 08:37] LABS: PLATELET COUNT 34 K/mm3 (130-400)
[2018-07-24 08:43] LABS: ALBUMIN 3.5 gm/dL (3.5-5.0); BILIRUBIN,TOTAL 0.3 mg/dL (0.0-1.0); CALCIUM 8.9 mg/dL (8.4-10.2); CREATININE, serum 0.92 (0.52-1.25); MAGNESIUM 2.4 mg/dL (1.6-2.3); TOTAL PROTEIN 6.4 gm/dL (6.4-8.2); URIC ACID 5.5 mg/dL (2.5-6.2)
[2018-07-24 09:00] LABS: LYMPHOCYTE 32 % (20.0-51.0); NEUTROPHILS 49 % (42.0-75.2)
[2018-07-24 09:01] LABS: PLATELET ESTIMATE DECREASED (NORMAL)
[2018-07-28 08:00] VITALS: BP 118/55; PULSE 86; TEMP 98.3
[2018-07-28 08:17] LABS: MEAN CELL VOLUME 87 fl (80.0-100.0); MEAN CORPUSCULAR HGB CONC 34 g/dl (33.0-37.0); MEAN PLATELET VOLUME 9.3 fl (7.4-10.4)
[2018-07-28 08:18] LABS: HEMATOCRIT 21.8 % (37.0-47.0); HEMOGLOBIN 7.5 g/dl (12.5-16.0); MEAN CORPUSCULAR HEMOGLOBIN 30 pg (27.0-31.0); PLATELET COUNT 23 K/mm3 (130-400)
[2018-07-28 08:41] LABS: EOSINOPHIL 3 % (0-4); LYMPHOCYTE 74 % (20.0-51.0); MYELOCYTE 5 % (0-0); NEUTROPHILS 16 % (42.0-75.2); NUCLEATED RED BLOOD CELL 1 (0-6); PLATELET ESTIMATE DECREASED (NORMAL)
--- NOTE | 2018-07-31 08:10 | NUR ---
patient here for cares. PICC intact right upper arm. With sterile technique right upper arm PICC dressing change done with insertion site cleansed with ChloraPrep 1, chlorhexidine impregnated disc applied, skin prep, StatLock, and Tegaderm applied. No signs or symptoms of IV complications noted. No concerns voiced. Patient return next week for cares. Patient voiced understanding of instructions. Arm wrapped with Davonte to protect catheter.
[2018-07-31 08:34] LABS: MEAN CELL VOLUME 87 fl (80.0-100.0); MEAN CORPUSCULAR HGB CONC 34 g/dl (33.0-37.0); MEAN PLATELET VOLUME 9.4 fl (7.4-10.4); RED BLOOD COUNT 2.28 M/mm3 (4.10-5.30)
[2018-07-31 08:38] LABS: HEMATOCRIT 19.9 % (37.0-47.0); MEAN CORPUSCULAR HEMOGLOBIN 29 pg (27.0-31.0)
[2018-07-31 08:39] LABS: HEMOGLOBIN 6.7 g/dl (12.5-16.0); PLATELET COUNT 15 K/mm3 (130-400)
[2018-07-31 08:42] VITALS: BP 115/55; PULSE 73; TEMP 98.5
[2018-07-31 08:44] LABS: ALBUMIN 3.1 gm/dL (3.5-5.0); BILIRUBIN,TOTAL 0.4 mg/dL (0.0-1.0); CALCIUM 8.3 mg/dL (8.4-10.2); CREATININE, serum 0.74 (0.52-1.25); MAGNESIUM 1.8 mg/dL (1.6-2.3); POTASSIUM 3.7 mmol/L (3.4-5.0); TOTAL PROTEIN 5.7 gm/dL (6.4-8.2); URIC ACID 5.1 mg/dL (2.5-6.2)
[2018-07-31 09:41] LABS: LYMPHOCYTE 48 % (20.0-51.0); NEUTROPHILS 35 % (42.0-75.2); PLATELET ESTIMATE DECREASED (NORMAL)
[2018-08-01] VITALS (10 sets, daily range): BP systolic 107–129; BP diastolic 63–84; PULSE 78–91; TEMP 97.8–98.6
[2018-08-01 16:39] LABS: COLLECTION METHOD CLEAN CATCH
[2018-08-01 16:59] LABS: MUCOUS Present /lpf; PH 7 (5-8); URINE APPEARANCE Clear; URINE BACTERIA Rare /hpf; URINE BILIRUBIN Negative (NEGATIVE); URINE BLOOD 1+ (NEGATIVE); URINE COLOR Yellow; URINE GLUCOSE Negative (NEGATIVE); URINE KETONE Negative (NEGATIVE); URINE LEUKOCYTE ESTERASE 1+ (NEGATIVE); URINE NITRATE Negative (NEGATIVE); URINE PROTEIN(semi-quant) Negative (NEGATIVE)
[2018-08-04 07:34] LABS: MEAN CELL VOLUME 87 fl (80.0-100.0); MEAN CORPUSCULAR HGB CONC 34 g/dl (33.0-37.0); RED BLOOD COUNT 2.74 M/mm3 (4.10-5.30)
[2018-08-04 07:39] LABS: HEMATOCRIT 23.7 % (37.0-47.0); HEMOGLOBIN 8.1 g/dl (12.5-16.0); MEAN CORPUSCULAR HEMOGLOBIN 30 pg (27.0-31.0)
[2018-08-04 07:40] LABS: PLATELET COUNT 14 K/mm3 (130-400)
[2018-08-04 08:43] LABS: ANISOCYTOSIS 1+; BAND 1 % (0-10); HYPOCHROMIA 1+; LYMPHOCYTE 44 % (20.0-51.0); NEUTROPHILS 21 % (42.0-75.2); PLATELET ESTIMATE DECREASED (NORMAL)
--- NOTE | 2018-08-07 08:15 | NUR ---
PICC intact right upper arm with sterile dressing change done with insertion site cleansed with chloraprep x 1, chlorhexidine impregnated disk applied, skin prep, stat lock, and tegaderm applied. no signs or syptoms of IV complications noted. no concerns voiced. re-wrapped with tong to protect catheter. to return next week for cares. voiced understanding of instructions.
[2018-08-07 08:22] VITALS: BP 122/54; PULSE 82; TEMP 98.2
[2018-08-07 08:23] LABS: MEAN CELL VOLUME 85 fl (80.0-100.0); MEAN CORPUSCULAR HGB CONC 34 g/dl (33.0-37.0); RED BLOOD COUNT 2.65 M/mm3 (4.10-5.30); REDCELL DISTRIBUTION WIDTH-CV 12.8 % (11.5-14.5)
[2018-08-07 08:41] LABS: ALBUMIN 3.2 gm/dL (3.5-5.0); BILIRUBIN,TOTAL 0.4 mg/dL (0.0-1.0); CALCIUM 8.4 mg/dL (8.4-10.2); CREATININE, serum 0.8 (0.52-1.25); MAGNESIUM 1.6 mg/dL (1.6-2.3); POTASSIUM 3.1 mmol/L (3.4-5.0); TOTAL PROTEIN 5.9 gm/dL (6.4-8.2); URIC ACID 6.5 mg/dL (2.5-6.2)
[2018-08-07 08:54] LABS: HEMATOCRIT 22.6 % (37.0-47.0); HEMOGLOBIN 7.7 g/dl (12.5-16.0); MEAN CORPUSCULAR HEMOGLOBIN 29 pg (27.0-31.0)
[2018-08-07 08:56] LABS: PLATELET COUNT 16 K/mm3 (130-400)
[2018-08-07 09:06] LABS: BAND 11 % (0-10); LYMPHOCYTE 46 % (20.0-51.0); NEUTROPHILS 17 % (42.0-75.2)
[2018-08-07 09:07] LABS: HYPOCHROMIA 1+; PLATELET ESTIMATE DECREASED (NORMAL)
[2018-08-11 08:30] LABS: MEAN CELL VOLUME 87 fl (80.0-100.0); MEAN CORPUSCULAR HGB CONC 33 g/dl (33.0-37.0); MEAN PLATELET VOLUME 9.5 fl (7.4-10.4); RED BLOOD COUNT 2.34 M/mm3 (4.10-5.30); REDCELL DISTRIBUTION WIDTH-CV 12.6 % (11.5-14.5)
[2018-08-11 08:32] LABS: HEMATOCRIT 20.3 % (37.0-47.0); MEAN CORPUSCULAR HEMOGLOBIN 29 pg (27.0-31.0)
[2018-08-11 08:33] LABS: HEMOGLOBIN 6.7 g/dl (12.5-16.0); PLATELET COUNT 23 K/mm3 (130-400)
[2018-08-11 08:35] LABS: ALBUMIN 3.1 gm/dL (3.5-5.0); BILIRUBIN,TOTAL 0.2 mg/dL (0.0-1.0); CALCIUM 8.6 mg/dL (8.4-10.2); CREATININE, serum 0.71 (0.52-1.25); MAGNESIUM 1.7 mg/dL (1.6-2.3); POTASSIUM 4.1 mmol/L (3.4-5.0); TOTAL PROTEIN 5.7 gm/dL (6.4-8.2); URIC ACID 4.5 mg/dL (2.5-6.2)
[2018-08-11 08:37] VITALS: BP 114/60; PULSE 77; TEMP 98.2
[2018-08-11 09:11] LABS: BAND 19 % (0-10); LYMPHOCYTE 44 % (20.0-51.0); NEUTROPHILS 17 % (42.0-75.2); PLATELET ESTIMATE DECREASED (NORMAL)
[2018-08-12] VITALS (12 sets, daily range): BP systolic 96–118; BP diastolic 55–91; PULSE 78–96; TEMP 97.3–98.3
--- NOTE | 2018-08-12 14:58 | NUR ---
1st unit complete. Waiting for second unit to arrive from [facility].
[2018-08-14 08:27] VITALS: BP 129/60; PULSE 65; TEMP 98.1
[2018-08-14 08:29] LABS: HEMATOCRIT 22.7 % (37.0-47.0); HEMOGLOBIN 7.7 g/dl (12.5-16.0); MEAN CELL VOLUME 84 fl (80.0-100.0); MEAN CORPUSCULAR HEMOGLOBIN 29 pg (27.0-31.0); MEAN CORPUSCULAR HGB CONC 34 g/dl (33.0-37.0); MEAN PLATELET VOLUME 10.1 fl (7.4-10.4); REDCELL DISTRIBUTION WIDTH-CV 15.4 % (11.5-14.5)
[2018-08-14 08:30] LABS: PLATELET COUNT 26 K/mm3 (130-400)
--- NOTE | 2018-08-14 08:30 | NUR ---
PICC intact right upper arm. With sterile technique right upper arm PICC dressing change done with insertion site cleansed with ChloraPrep 1, chlorhexidine impregnated disc applied, skin prep, StatLock, and Tegaderm applied. No signs or symptoms of IV complications noted. No concerns voiced. Arm wrapped with Davonte to protect catheter. Patient to return as instructed for cares.
[2018-08-14 08:47] LABS: ALBUMIN 3.2 gm/dL (3.5-5.0); BILIRUBIN,TOTAL 0.4 mg/dL (0.0-1.0); CALCIUM 8.7 mg/dL (8.4-10.2); CREATININE, serum 0.71 (0.52-1.25); MAGNESIUM 1.8 mg/dL (1.6-2.3); POTASSIUM 3.9 mmol/L (3.4-5.0); TOTAL PROTEIN 5.9 gm/dL (6.4-8.2); URIC ACID 3.9 mg/dL (2.5-6.2)
[2018-08-14 08:49] LABS: BAND 1 % (0-10); LYMPHOCYTE 62 % (20.0-51.0); METAMYELOCYTE 1 % (0-0); NEUTROPHILS 29 % (42.0-75.2); PLATELET ESTIMATE DECREASED (NORMAL)
[~2018-08-18] VITALS: Ht 175.3 cm; Wt 120.8 kg
[2018-08-18 08:00] VITALS: BP 148/48; PULSE 80; TEMP 98.2
[2018-08-18 08:28] LABS: MEAN CELL VOLUME 84 fl (80.0-100.0); MEAN CORPUSCULAR HGB CONC 33 g/dl (33.0-37.0); MEAN PLATELET VOLUME 9.8 fl (7.4-10.4); RED BLOOD COUNT 2.65 M/mm3 (4.10-5.30); REDCELL DISTRIBUTION WIDTH-CV 14.1 % (11.5-14.5)
[2018-08-18 08:30] LABS: HEMATOCRIT 22.2 % (37.0-47.0); HEMOGLOBIN 7.4 g/dl (12.5-16.0); MEAN CORPUSCULAR HEMOGLOBIN 28 pg (27.0-31.0); PLATELET COUNT 26 K/mm3 (130-400)
[~2018-08-18 09:00] MED LIST changes: +COMPAZINE 110 MG/TAB PO; +VIDAZA100 MG SQ
[2018-08-18 09:06] LABS: BAND 1 % (0-10); LYMPHOCYTE 68 % (20.0-51.0); METAMYELOCYTE 3 % (0-0); MYELOCYTE 1 % (0-0); NEUTROPHILS 20 % (42.0-75.2); PLATELET ESTIMATE DECREASED (NORMAL)
--- NOTE | 2018-08-18 09:56 | NUR ---
MIRA OLIVERA CALLED CRITICAL LAB INTO DR. LORA'S OFFICE PER MIRA OLIVERA
== END 2018-08-20 | disposition home or self-care (01) ==
LOC: EUO
PROVIDERS: Internal Medicine; Ophthalmology
DX: D46.9 Myelodysplastic syndrome, unspecified (principal); D69.6 Thrombocytopenia, unspecified
CPT/HCPCS: C1751; J7050; P9037; P9040

== ENCOUNTER 2018-09-22 08:00 | Outpatient (RCR) | payer MEDICARE, OTHER ==
[2018-08-21 08:00] VITALS: BP 103/58; PULSE 81; TEMP 98.5
--- NOTE | 2018-08-21 08:10 | NUR ---
PICC intact right upper arm with sterile dressing change done with insertion site cleasned with chloraprep x 1, chlorhexidine impregnated disk applied, skin prep, stat lock, and tegaderm applied. no signs or sypmptoms of IV complications noted. no concerns voiced. re-wrapped with tong to protect catheter.
[2018-08-21 08:46] LABS: MEAN CELL VOLUME 85 fl (80.0-100.0); MEAN CORPUSCULAR HGB CONC 33 g/dl (33.0-37.0); MEAN PLATELET VOLUME 9.9 fl (7.4-10.4); RED BLOOD COUNT 2.31 M/mm3 (4.10-5.30); REDCELL DISTRIBUTION WIDTH-CV 14.2 % (11.5-14.5)
[2018-08-21 08:50] LABS: HEMATOCRIT 19.6 % (37.0-47.0); HEMOGLOBIN 6.5 g/dl (12.5-16.0); MEAN CORPUSCULAR HEMOGLOBIN 28 pg (27.0-31.0); PLATELET COUNT 29 K/mm3 (130-400)
[2018-08-21 08:53] LABS: ALBUMIN 3.2 gm/dL (3.5-5.0); BILIRUBIN,TOTAL 0.4 mg/dL (0.0-1.0); CALCIUM 8.7 mg/dL (8.4-10.2); CREATININE, serum 0.69 (0.52-1.25); MAGNESIUM 1.6 mg/dL (1.6-2.3); POTASSIUM 3.6 mmol/L (3.4-5.0); TOTAL PROTEIN 5.8 gm/dL (6.4-8.2); URIC ACID 4.6 mg/dL (2.5-6.2)
[2018-08-21 09:11] LABS: LYMPHOCYTE 60 % (20.0-51.0); NEUTROPHILS 30 % (42.0-75.2); PLATELET ESTIMATE DECREASED (NORMAL)
[2018-08-21 09:12] LABS: HYPOCHROMIA 1+
[2018-08-22] VITALS (9 sets, daily range): BP systolic 116–133; BP diastolic 59–85; PULSE 74–94; TEMP 98–98.6
--- NOTE | 2018-08-22 15:10 | NUR ---
1st unit PRBC's complete. VSS.
--- NOTE | 2018-08-22 15:15 | NUR ---
2nd unit PRBC's started at 60 ml/hr
[2018-08-25 08:14] VITALS: BP 125/40; PULSE 80; TEMP 98.2
[2018-08-25 08:14] LABS: MEAN CELL VOLUME 84 fl (80.0-100.0); MEAN CORPUSCULAR HGB CONC 34 g/dl (33.0-37.0); MEAN PLATELET VOLUME 9.4 fl (7.4-10.4); RED BLOOD COUNT 3.09 M/mm3 (4.10-5.30); REDCELL DISTRIBUTION WIDTH-CV 14.2 % (11.5-14.5)
[2018-08-25 08:30] LABS: HEMOGLOBIN 8.7 g/dl (12.5-16.0); MEAN CORPUSCULAR HEMOGLOBIN 28 pg (27.0-31.0)
[2018-08-25 08:31] LABS: PLATELET COUNT 25 K/mm3 (130-400)
[2018-08-25 09:28] LABS: ANISOCYTOSIS 1+; BAND 2 % (0-10); EOSINOPHIL 1 % (0-4); HYPOCHROMIA 1+; LYMPHOCYTE 54 % (20.0-51.0); MYELOCYTE 6 % (0-0); NEUTROPHILS 25 % (42.0-75.2); PLATELET ESTIMATE DECREASED (NORMAL)
[2018-08-28 08:20] VITALS: BP 149/74; PULSE 62; TEMP 98.1
[2018-08-28 08:21] LABS: MEAN CELL VOLUME 85 fl (80.0-100.0); MEAN CORPUSCULAR HGB CONC 34 g/dl (33.0-37.0); MEAN PLATELET VOLUME 9.7 fl (7.4-10.4); RED BLOOD COUNT 2.79 M/mm3 (4.10-5.30); REDCELL DISTRIBUTION WIDTH-CV 13.9 % (11.5-14.5)
[2018-08-28 08:22] LABS: HEMATOCRIT 23.7 % (37.0-47.0); MEAN CORPUSCULAR HEMOGLOBIN 29 pg (27.0-31.0)
[2018-08-28 08:23] LABS: PLATELET COUNT 27 K/mm3 (130-400)
--- NOTE | 2018-08-28 08:25 | NUR ---
PICC intact right upper arm with sterile dressing change done with insertion site cleansed with chloraprep x 1, skin prep, stat lock, chlorhexidine impregnated disk applied, and tegaderm applied. no signs or symptoms of IV complications noted. no concerns voiced. to return on Saturday for cares. voiced understanding of instructions.
--- NOTE | 2018-08-28 08:27 | NUR ---
PT HAD CRITICAL LAB VALUE OF PLATELET COUNT OF 27. DR LORA'S OFFICE CALLED AND CRITICAL VALUE REPORTED TO NURSE.
--- NOTE | 2018-08-28 08:34 | NUR ---
PT'S LAB WORK, DRESSING CHANGE, AND CAP CHANGE COMPLETE. PT AMBULATED TO EXIT WITHOUT DIFFICULTY.
[2018-08-28 08:36] LABS: ALBUMIN 3.3 gm/dL (3.5-5.0); BILIRUBIN,TOTAL 0.3 mg/dL (0.0-1.0); CALCIUM 8.5 mg/dL (8.4-10.2); CREATININE, serum 0.68 (0.52-1.25); MAGNESIUM 2.2 mg/dL (1.6-2.3); TOTAL PROTEIN 5.9 gm/dL (6.4-8.2)
[2018-08-28 08:39] LABS: BAND 1 % (0-10); LYMPHOCYTE 25 % (20.0-51.0); MYELOCYTE 1 % (0-0); NEUTROPHILS 57 % (42.0-75.2)
[2018-09-01 08:32] LABS: BILIRUBIN,TOTAL 0.4 mg/dL (0.0-1.0); CALCIUM 8.2 mg/dL (8.4-10.2); CREATININE, serum 0.73 (0.52-1.25); MAGNESIUM 1.8 mg/dL (1.6-2.3); POTASSIUM 3.7 mmol/L (3.4-5.0); TOTAL PROTEIN 5.4 gm/dL (6.4-8.2); URIC ACID 5.7 mg/dL (2.5-6.2)
[2018-09-01 08:43] LABS: MEAN CELL VOLUME 86 fl (80.0-100.0); MEAN CORPUSCULAR HGB CONC 34 g/dl (33.0-37.0); MEAN PLATELET VOLUME 10.1 fl (7.4-10.4); REDCELL DISTRIBUTION WIDTH-CV 14.1 % (11.5-14.5)
[2018-09-01 08:46] LABS: HEMOGLOBIN 8.1 g/dl (12.5-16.0); MEAN CORPUSCULAR HEMOGLOBIN 29 pg (27.0-31.0)
[2018-09-01 08:47] LABS: PLATELET COUNT 21 K/mm3 (130-400)
[2018-09-01 09:41] VITALS: BP 142/90; PULSE 65; TEMP 98.2
[2018-09-01 09:55] LABS: BAND 5 % (0-10); LYMPHOCYTE 54 % (20.0-51.0); NEUTROPHILS 28 % (42.0-75.2); PLATELET ESTIMATE DECREASED (NORMAL)
--- NOTE | 2018-09-04 08:10 | NUR ---
PICC intact right upper arm with sterile dressing change done with insertion site cleansed with chloraprep x 1, chlorhexidine impregnated disk applied, skin prep, stat lock, and tegaderm applied. no signs or symptoms of IV complications noted. no concerns voiced. to continue in for cares. voiced understanding of instructions.
[2018-09-04 08:39] LABS: ALBUMIN 2.9 gm/dL (3.5-5.0); BILIRUBIN,TOTAL 0.3 mg/dL (0.0-1.0); CALCIUM 8.4 mg/dL (8.4-10.2); CREATININE, serum 0.66 (0.52-1.25); MAGNESIUM 1.7 mg/dL (1.6-2.3); POTASSIUM 3.8 mmol/L (3.4-5.0); TOTAL PROTEIN 5.4 gm/dL (6.4-8.2); URIC ACID 5.8 mg/dL (2.5-6.2)
[2018-09-04 08:41] LABS: MEAN CELL VOLUME 87 fl (80.0-100.0); MEAN CORPUSCULAR HGB CONC 33 g/dl (33.0-37.0); MEAN PLATELET VOLUME 10.3 fl (7.4-10.4); RED BLOOD COUNT 2.38 M/mm3 (4.10-5.30); REDCELL DISTRIBUTION WIDTH-CV 14.4 % (11.5-14.5)
[2018-09-04 08:44] LABS: HEMATOCRIT 20.6 % (37.0-47.0); MEAN CORPUSCULAR HEMOGLOBIN 29 pg (27.0-31.0)
[2018-09-04 08:45] LABS: HEMOGLOBIN 6.8 g/dl (12.5-16.0); PLATELET COUNT 10 K/mm3 (130-400)
[2018-09-04 08:51] VITALS: BP 105/63; PULSE 70; TEMP 98.6
[2018-09-04 10:26] LABS: BAND 17 % (0-10); LYMPHOCYTE 34 % (20.0-51.0); NEUTROPHILS 31 % (42.0-75.2)
[2018-09-04 10:27] LABS: PLATELET ESTIMATE DECREASED (NORMAL)
[2018-09-05] VITALS (15 sets, daily range): BP systolic 99–123; BP diastolic 43–66; PULSE 82–93; TEMP 97.1–98.9
--- NOTE | 2018-09-05 18:24 | NUR ---
Report to Norman Reid at this time.
[2018-09-09 08:19] LABS: MEAN CELL VOLUME 85 fl (80.0-100.0); MEAN CORPUSCULAR HGB CONC 34 g/dl (33.0-37.0); MEAN PLATELET VOLUME 9.3 fl (7.4-10.4); RED BLOOD COUNT 2.55 M/mm3 (4.10-5.30); REDCELL DISTRIBUTION WIDTH-CV 13.9 % (11.5-14.5)
[2018-09-09 08:21] LABS: HEMATOCRIT 21.7 % (37.0-47.0); HEMOGLOBIN 7.4 g/dl (12.5-16.0); MEAN CORPUSCULAR HEMOGLOBIN 29 pg (27.0-31.0)
[2018-09-09 08:22] LABS: PLATELET COUNT 7 K/mm3 (130-400)
[2018-09-09 08:25] VITALS: BP 124/63; PULSE 77; TEMP 98.6
[2018-09-09 08:31] LABS: ALBUMIN 3.2 gm/dL (3.5-5.0); BILIRUBIN,TOTAL 0.4 mg/dL (0.0-1.0); CALCIUM 8.7 mg/dL (8.4-10.2); CREATININE, serum 0.69 (0.52-1.25); MAGNESIUM 1.7 mg/dL (1.6-2.3); POTASSIUM 3.6 mmol/L (3.4-5.0); TOTAL PROTEIN 5.9 gm/dL (6.4-8.2); URIC ACID 5.7 mg/dL (2.5-6.2)
[2018-09-09 10:22] LABS: BAND 7 % (0-10); EOSINOPHIL 1 % (0-4); LYMPHOCYTE 53 % (20.0-51.0); NEUTROPHILS 19 % (42.0-75.2)
[2018-09-09 10:23] LABS: HYPOCHROMIA 2+; PLATELET ESTIMATE DECREASED (NORMAL)
[2018-09-09 10:24] LABS: MICROCYTOSIS 1+
[2018-09-10] VITALS (8 sets, daily range): BP systolic 107–128; BP diastolic 47–60; PULSE 73–98; TEMP 97.7–99
--- NOTE | 2018-09-11 08:20 | NUR ---
here for cares. With sterile technique right upper arm PICC dressing change done with insertion site cleansed with ChloraPrep 1, exudate impregnated disc applied, skin prep, StatLock, and Tegaderm applied. No signs or symptoms of IV complications noted. No concerns voiced. Arm wrapped with Davonte to protect catheter.
[2018-09-11 08:34] VITALS: BP 119/72; PULSE 72; TEMP 98.3
[2018-09-11 09:07] LABS: MEAN CELL VOLUME 85 fl (80.0-100.0); MEAN CORPUSCULAR HGB CONC 34 g/dl (33.0-37.0); MEAN PLATELET VOLUME 10.3 fl (7.4-10.4); RED BLOOD COUNT 2.16 M/mm3 (4.10-5.30); REDCELL DISTRIBUTION WIDTH-CV 13.6 % (11.5-14.5)
[2018-09-11 09:13] LABS: ALBUMIN 3.1 gm/dL (3.5-5.0); BILIRUBIN,TOTAL 0.4 mg/dL (0.0-1.0); CALCIUM 8.7 mg/dL (8.4-10.2); CREATININE, serum 0.67 (0.52-1.25); MAGNESIUM 1.7 mg/dL (1.6-2.3); POTASSIUM 3.5 mmol/L (3.4-5.0); TOTAL PROTEIN 5.8 gm/dL (6.4-8.2); URIC ACID 5.7 mg/dL (2.5-6.2)
[2018-09-11 10:00] LABS: LYMPHOCYTE 65 % (20.0-51.0); METAMYELOCYTE 5 % (0-0)
[2018-09-11 10:10] LABS: HEMATOCRIT 18.4 % (37.0-47.0); MEAN CORPUSCULAR HEMOGLOBIN 29 pg (27.0-31.0)
[2018-09-11 10:12] LABS: HEMOGLOBIN 6.2 g/dl (12.5-16.0); PLATELET COUNT 26 K/mm3 (130-400)
[2018-09-11 10:36] LABS: BAND 13 % (0-10); MYELOCYTE 1 % (0-0); NEUTROPHILS 13 % (42.0-75.2)
[2018-09-11 10:37] LABS: PLATELET ESTIMATE DECREASED (NORMAL)
[2018-09-12] VITALS (9 sets, daily range): BP systolic 91–135; BP diastolic 46–70; PULSE 76–90; TEMP 97.3–99
[2018-09-12 07:46] LABS: PATHOLOGY DIFF REVIEW OK +
[2018-09-15 08:21] LABS: HEMATOCRIT 23.2 % (37.0-47.0); MEAN CELL VOLUME 83 fl (80.0-100.0); MEAN CORPUSCULAR HEMOGLOBIN 29 pg (27.0-31.0); MEAN CORPUSCULAR HGB CONC 35 g/dl (33.0-37.0); RED BLOOD COUNT 2.79 M/mm3 (4.10-5.30); REDCELL DISTRIBUTION WIDTH-CV 13.7 % (11.5-14.5)
[2018-09-15 08:22] LABS: PLATELET COUNT 14 K/mm3 (130-400)
[2018-09-15 08:25] VITALS: BP 139/60; PULSE 85; TEMP 98
[2018-09-15 08:32] LABS: ALBUMIN 3.3 gm/dL (3.5-5.0); BILIRUBIN,TOTAL 0.6 mg/dL (0.0-1.0); CALCIUM 8.9 mg/dL (8.4-10.2); CREATININE, serum 0.67 (0.52-1.25); MAGNESIUM 1.7 mg/dL (1.6-2.3); POTASSIUM 3.7 mmol/L (3.4-5.0); TOTAL PROTEIN 6.1 gm/dL (6.4-8.2); URIC ACID 5.9 mg/dL (2.5-6.2)
[2018-09-15 09:07] LABS: LYMPHOCYTE 54 % (20.0-51.0); NEUTROPHILS 24 % (42.0-75.2); PLATELET ESTIMATE DECREASED (NORMAL)
--- NOTE | 2018-09-18 08:10 | NUR ---
here for cares. With sterile technique right upper arm PICC dressing change done with insertion site cleansed with ChloraPrep 1, chlorhexidine impregnated disc applied, skin prep, StatLock, and Tegaderm applied. No signs or symptoms of IV complications noted. No concerns voiced. Arm wrapped with Davonte to protect catheter. To continue with cares in the express unit. Patient voiced understanding of instructions.
[2018-09-18 08:24] VITALS: BP 125/81; PULSE 79; TEMP 98
[2018-09-18 08:33] LABS: MEAN CELL VOLUME 85 fl (80.0-100.0); MEAN CORPUSCULAR HGB CONC 33 g/dl (33.0-37.0); MEAN PLATELET VOLUME 9.9 fl (7.4-10.4); RED BLOOD COUNT 2.46 M/mm3 (4.10-5.30); REDCELL DISTRIBUTION WIDTH-CV 13.7 % (11.5-14.5)
[2018-09-18 08:37] LABS: HEMATOCRIT 20.8 % (37.0-47.0); HEMOGLOBIN 6.9 g/dl (12.5-16.0); MEAN CORPUSCULAR HEMOGLOBIN 28 pg (27.0-31.0); PLATELET COUNT 12 K/mm3 (130-400)
[2018-09-18 08:56] LABS: EOSINOPHIL 2 % (0-4); LYMPHOCYTE 66 % (20.0-51.0); METAMYELOCYTE 3 % (0-0); MYELOCYTE 3 % (0-0); NEUTROPHILS 14 % (42.0-75.2); NUCLEATED RED BLOOD CELL 1 (0-6); PLATELET ESTIMATE DECREASED (NORMAL)
[2018-09-19] VITALS (14 sets, daily range): BP systolic 113–136; BP diastolic 48–64; PULSE 82–95; TEMP 97.6–98.6
[~2018-09-22] VITALS: Ht 175.3 cm; Wt 119.6 kg
[~2018-09-22 08:00] MED LIST changes: +B-121000 MCG PO; +CEPHALEXIN500 M1 PO
[2018-09-22 08:12] VITALS: BP 118/54; PULSE 69; TEMP 98.5
[2018-09-22 08:22] LABS: HEMATOCRIT 24.7 % (37.0-47.0); HEMOGLOBIN 8.3 g/dl (12.5-16.0); MEAN CELL VOLUME 84 fl (80.0-100.0); MEAN CORPUSCULAR HEMOGLOBIN 28 pg (27.0-31.0); MEAN CORPUSCULAR HGB CONC 34 g/dl (33.0-37.0); MEAN PLATELET VOLUME 8.7 fl (7.4-10.4); RED BLOOD COUNT 2.93 M/mm3 (4.10-5.30); REDCELL DISTRIBUTION WIDTH-CV 13.7 % (11.5-14.5)
[2018-09-22 08:23] LABS: PLATELET COUNT 13 K/mm3 (130-400)
[2018-09-22 08:31] LABS: ALBUMIN 3.5 gm/dL (3.5-5.0); BILIRUBIN,TOTAL 0.8 mg/dL (0.0-1.0); CALCIUM 8.8 mg/dL (8.4-10.2); CREATININE, serum 0.67 (0.52-1.25); MAGNESIUM 1.6 mg/dL (1.6-2.3); POTASSIUM 3.5 mmol/L (3.4-5.0); TOTAL PROTEIN 6.4 gm/dL (6.4-8.2); URIC ACID 5.7 mg/dL (2.5-6.2)
[2018-09-22 08:37] LABS: BAND 2 % (0-10); EOSINOPHIL 1 % (0-4); LYMPHOCYTE 58 % (20.0-51.0); NEUTROPHILS 21 % (42.0-75.2); PLATELET ESTIMATE DECREASED (NORMAL)
== END 2018-09-23 14:18 | disposition home or self-care (01) ==
LOC: EUO 08:00
PROVIDERS: Internal Medicine
DX: C92.00 Acute myeloblastic leukemia, not having achieved remission (principal); D53.9 Nutritional anemia, unspecified; D46.Z Other myelodysplastic syndromes
CPT/HCPCS: J7050; P9037; P9040

== ENCOUNTER 2018-11-25 14:00 | Outpatient (RCR) | payer MEDICARE, OTHER ==
--- NOTE | 2018-11-18 14:10 | NUR ---
here for lab draw. PICC intact right upper arm. Clamped bard catheter present. Patient reports PICC placed here at via [facility] was exchanged with current PICC line. dressing dated 11/17/18. No signs or symptoms of IV complications noted. No concerns voiced.
[2018-11-18 14:55] VITALS: BP 118/69; BP 137/62; PULSE 80; PULSE 96; TEMP 97.8; TEMP 98.5
[2018-11-18 15:02] LABS: MEAN CELL VOLUME 92 fl (80.0-100.0); MEAN CORPUSCULAR HGB CONC 33 g/dl (33.0-37.0); MEAN PLATELET VOLUME 11.6 fl (7.4-10.4); RED BLOOD COUNT 2.27 M/mm3 (4.10-5.30); REDCELL DISTRIBUTION WIDTH-CV 17.8 % (11.5-14.5)
[2018-11-18 15:05] LABS: HEMATOCRIT 20.9 % (37.0-47.0); HEMOGLOBIN 6.8 g/dl (12.5-16.0); MEAN CORPUSCULAR HEMOGLOBIN 30 pg (27.0-31.0); PLATELET COUNT 33 K/mm3 (130-400)
[2018-11-18 15:10] LABS: ALBUMIN 3.4 gm/dL (3.5-5.0); BILIRUBIN,TOTAL 0.9 mg/dL (0.0-1.0); CALCIUM 8.5 mg/dL (8.4-10.2); CREATININE, serum 0.62 (0.52-1.25); POTASSIUM 3.6 mmol/L (3.4-5.0); TOTAL PROTEIN 6.5 gm/dL (6.4-8.2)
[2018-11-18 15:57] LABS: BAND 8 % (0-10); NEUTROPHILS 40 % (42.0-75.2)
[2018-11-18 15:58] LABS: LYMPHOCYTE 51 % (20.0-51.0)
[2018-11-18 15:59] LABS: ANISOCYTOSIS 1+; HYPOCHROMIA 2+; PLATELET ESTIMATE DECREASED (NORMAL); POLYCHROMASIA 1+
[2018-11-18 16:01] LABS: STOMATOCYTE 1+
[2018-11-19] VITALS (9 sets, daily range): BP systolic 112–131; BP diastolic 53–72; PULSE 84–91; TEMP 97.8–98.3
[2018-11-19 13:40] LABS: ALBUMIN 3.2 gm/dL (3.5-5.0); BILIRUBIN,TOTAL 0.8 mg/dL (0.0-1.0); CALCIUM 8.3 mg/dL (8.4-10.2); CREATININE, serum 0.64 (0.52-1.25); POTASSIUM 3.4 mmol/L (3.4-5.0); TOTAL PROTEIN 6.1 gm/dL (6.4-8.2)
[2018-11-19 13:43] LABS: MEAN CELL VOLUME 94 fl (80.0-100.0); MEAN CORPUSCULAR HGB CONC 34 g/dl (33.0-37.0); MEAN PLATELET VOLUME 12.1 fl (7.4-10.4); RED BLOOD COUNT 2.13 M/mm3 (4.10-5.30); REDCELL DISTRIBUTION WIDTH-CV 18.5 % (11.5-14.5)
[2018-11-19 13:44] LABS: HEMOGLOBIN 6.7 g/dl (12.5-16.0); MEAN CORPUSCULAR HEMOGLOBIN 31 pg (27.0-31.0); PLATELET COUNT 33 K/mm3 (130-400)
[2018-11-19 14:37] LABS: ANISOCYTOSIS 1+; BASOPHIL 2 % (0-2); LYMPHOCYTE 9 % (20.0-51.0); NEUTROPHILS 85 % (42.0-75.2); PLATELET ESTIMATE DECREASED (NORMAL)
--- NOTE | 2018-11-19 17:43 | NUR ---
rEPORT RECEIVED FROM Jenny MARTÍNEZ.
--- NOTE | 2018-11-19 17:44 | NUR ---
Report to Isatu Crum RN who assumed care at this time.
[2018-11-20 10:00] VITALS: BP 125/66; PULSE 86; TEMP 98.2
[2018-11-20 10:26] LABS: MEAN CELL VOLUME 90 fl (80.0-100.0); MEAN CORPUSCULAR HGB CONC 34 g/dl (33.0-37.0); MEAN PLATELET VOLUME 11.3 fl (7.4-10.4); RED BLOOD COUNT 2.92 M/mm3 (4.10-5.30); REDCELL DISTRIBUTION WIDTH-CV 18.5 % (11.5-14.5)
[2018-11-20 10:31] LABS: HEMATOCRIT 26.4 % (37.0-47.0); HEMOGLOBIN 8.9 g/dl (12.5-16.0); MEAN CORPUSCULAR HEMOGLOBIN 30 pg (27.0-31.0); PLATELET COUNT 33 K/mm3 (130-400)
[2018-11-20 10:35] LABS: ALBUMIN 3.3 gm/dL (3.5-5.0); BILIRUBIN,TOTAL 0.8 mg/dL (0.0-1.0); CALCIUM 8.5 mg/dL (8.4-10.2); CREATININE, serum 0.59 (0.52-1.25); POTASSIUM 3.5 mmol/L (3.4-5.0); TOTAL PROTEIN 6.2 gm/dL (6.4-8.2)
[2018-11-20 11:05] LABS: BAND 4 % (0-10); LYMPHOCYTE 42 % (20.0-51.0); METAMYELOCYTE 5 % (0-0); MYELOCYTE 2 % (0-0); NEUTROPHILS 31 % (42.0-75.2); NUCLEATED RED BLOOD CELL 6 (0-6); PLATELET ESTIMATE DECREASED (NORMAL)
[2018-11-20 11:06] LABS: OVALOCYTES 1+
[2018-11-20 11:07] LABS: POLYCHROMASIA 1+
[2018-11-20 11:08] LABS: ANISOCYTOSIS 1+
[2018-11-20 11:09] LABS: MICROCYTOSIS 1+; SPHEROCYTE 1+
[2018-11-21 08:00] LABS: PATHOLOGY DIFF REVIEW OK +
[2018-11-21 11:28] LABS: MEAN CELL VOLUME 93 fl (80.0-100.0); MEAN CORPUSCULAR HGB CONC 33 g/dl (33.0-37.0); MEAN PLATELET VOLUME 11.2 fl (7.4-10.4); RED BLOOD COUNT 2.91 M/mm3 (4.10-5.30); REDCELL DISTRIBUTION WIDTH-CV 19.3 % (11.5-14.5)
[2018-11-21 11:29] LABS: MEAN CORPUSCULAR HEMOGLOBIN 31 pg (27.0-31.0)
[2018-11-21 11:30] LABS: PLATELET COUNT 34 K/mm3 (130-400)
[2018-11-21 11:38] VITALS: BP 121/61; PULSE 93; TEMP 97.2
[2018-11-21 11:44] LABS: ALBUMIN 3.2 gm/dL (3.5-5.0); BILIRUBIN,TOTAL 0.8 mg/dL (0.0-1.0); CALCIUM 8.4 mg/dL (8.4-10.2); CREATININE, serum 0.56 (0.52-1.25); POTASSIUM 3.3 mmol/L (3.4-5.0)
[2018-11-21 11:49] LABS: ANISOCYTOSIS 2+; LYMPHOCYTE 46 % (20.0-51.0); METAMYELOCYTE 2 % (0-0); MYELOCYTE 2 % (0-0); NEUTROPHILS 35 % (42.0-75.2); NUCLEATED RED BLOOD CELL 2 (0-6); PLATELET ESTIMATE DECREASED (NORMAL); POLYCHROMASIA 1+
[2018-11-22 08:50] LABS: MEAN CELL VOLUME 93 fl (80.0-100.0); MEAN CORPUSCULAR HGB CONC 34 g/dl (33.0-37.0); MEAN PLATELET VOLUME 10.4 fl (7.4-10.4); RED BLOOD COUNT 2.98 M/mm3 (4.10-5.30); REDCELL DISTRIBUTION WIDTH-CV 20.1 % (11.5-14.5)
[2018-11-22 08:53] LABS: HEMATOCRIT 27.8 % (37.0-47.0); HEMOGLOBIN 9.3 g/dl (12.5-16.0); MEAN CORPUSCULAR HEMOGLOBIN 31 pg (27.0-31.0); PLATELET COUNT 34 K/mm3 (130-400)
[2018-11-22 08:58] LABS: ALBUMIN 3.3 gm/dL (3.5-5.0); BILIRUBIN,TOTAL 0.8 mg/dL (0.0-1.0); CALCIUM 8.5 mg/dL (8.4-10.2); CREATININE, serum 0.57 (0.52-1.25); POTASSIUM 3.4 mmol/L (3.4-5.0); TOTAL PROTEIN 6.4 gm/dL (6.4-8.2)
[2018-11-22 09:08] VITALS: BP 127/71; PULSE 87; TEMP 98.6
[2018-11-22 11:10] LABS: ANISOCYTOSIS 4+; BAND 4 % (0-10); LYMPHOCYTE 54 % (20.0-51.0); NEUTROPHILS 36 % (42.0-75.2); NUCLEATED RED BLOOD CELL 1 (0-6); PLATELET ESTIMATE DECREASED (NORMAL)
[2018-11-22 11:11] LABS: HYPOCHROMIA 2+
[~2018-11-25] VITALS: Ht 175.3 cm; Wt 115.2 kg
--- NOTE | 2018-11-25 10:15 | NUR ---
patient here for PICC cares. With sterile technique right upper arm PICC dressing change done with insertion site cleansed with ChloraPrep 1, chlorhexidine impregnated disc applied, skin prep, StatLock, and Tegaderm applied. No signs or symptoms of IV complications noted. No concerns voiced. Patient to return next week for cares if she is not in [place].
[2018-11-25 10:24] VITALS: BP 146/62; PULSE 93; TEMP 97.5
[2018-11-25 10:27] LABS: MEAN CELL VOLUME 95 fl (80.0-100.0); MEAN CORPUSCULAR HGB CONC 33 g/dl (33.0-37.0); MEAN PLATELET VOLUME 11.5 fl (7.4-10.4); RED BLOOD COUNT 2.96 M/mm3 (4.10-5.30); REDCELL DISTRIBUTION WIDTH-CV 22.3 % (11.5-14.5)
[2018-11-25 10:28] LABS: HEMATOCRIT 28.1 % (37.0-47.0); HEMOGLOBIN 9.3 g/dl (12.5-16.0); MEAN CORPUSCULAR HEMOGLOBIN 31 pg (27.0-31.0)
[2018-11-25 10:30] LABS: PLATELET COUNT 43 K/mm3 (130-400)
[2018-11-25 10:58] LABS: ANISOCYTOSIS 3+; LYMPHOCYTE 29 % (20.0-51.0); NEUTROPHILS 62 % (42.0-75.2); PLATELET ESTIMATE DECREASED (NORMAL)
[~2018-11-25 14:00] MED LIST changes: +K-DUR20 MEQ PO; +LEVAQUIN 750MG750 M1 PO; +NORVASC 10MG10 MG PO; +NOXAFILTAB PO; +ULTRAM 50MG TAB50 MG PO
[2018-11-28 10:20] LABS: CALCIUM 8.7 mg/dL (8.4-10.2); CREATININE, serum 0.59 (0.52-1.25); POTASSIUM 3.9 mmol/L (3.4-5.0)
--- NOTE | 2018-12-01 15:00 | NUR ---
Pt called to cancel future appointments for PICC dressing and labs d/t [facility] removing PICC line.
== END 2018-12-01 15:00 | disposition home or self-care (01) ==
LOC: EUO 14:00
PROVIDERS: Internal Medicine; Internal Medicine Cardiovascular Disease
DX: C92.00 Acute myeloblastic leukemia, not having achieved remission (principal); D46.Z Other myelodysplastic syndromes; D53.9 Nutritional anemia, unspecified
CPT/HCPCS: J7050; P9040

== ENCOUNTER 2019-12-01 14:58 | Emergency (ER) | payer MEDICARE, OTHER ==
[~2019-12-01] VITALS: Ht 175.3 cm; Wt 80.0 kg
[2019-12-01 15:52] LABS: BASO % 0.5 % (0.0-2.0); EOS # 0.1 (0.0-0.7); EOS % 1.6 % (0-4.0); GRAN # 2.9 (1.4-6.5); GRAN % 50.8 % (42.2-75.2); HEMATOCRIT 39.2 % (37.0-47.0); HEMOGLOBIN 12.9 g/dl (12.5-16.0); LYMPH # 1.8 (1.2-3.4); LYMPH % 31.7 % (20.0-51.0); MEAN CELL VOLUME 111 fl (80.0-100.0); MEAN CORPUSCULAR HEMOGLOBIN 37 pg (27.0-31.0); MEAN CORPUSCULAR HGB CONC 33 g/dl (33.0-37.0); MEAN PLATELET VOLUME 9.5 fl (7.4-10.4); MONO # 0.9 (0.1-0.6); PLATELET COUNT 160 K/mm3 (130-400); RED BLOOD COUNT 3.53 M/mm3 (4.10-5.30); REDCELL DISTRIBUTION WIDTH-CV 13.4 % (11.5-14.5)
[2019-12-01 16:03] LABS: ALANINE AMINOTRANSFERASE 32 U/L (4-34); ALBUMIN 3.8 gm/dL (3.5-5.0); ALKALINE PHOSPHATASE 67 U/L (50-136); ANION GAP 8 mmol/L (7-16); AST,SGOT 50 U/L (15-37); BILIRUBIN,TOTAL 1.5 mg/dL (0.0-1.0); BLOOD UREA NITROGEN 15 mg/dL (7-17); C-REACTIVE PROTEIN 0.7 mg/dL (0.0-0.9); CALCIUM 8.5 mg/dL (8.4-10.2); CARBON DIOXIDE 26 mmol/L (22-30); CHLORIDE 99 mmol/L (98-107); GLUCOSE 105 mg/dL (74-106); POTASSIUM 3.8 mmol/L (3.4-5.0); SODIUM 133 mmol/L (137-145); TOTAL PROTEIN 7.4 gm/dL (6.4-8.2)
[2019-12-01 16:39] LABS: TROPONIN-I < 0.012 ng/mL (0.000-0.035)
[2019-12-01 16:51] LABS: COLLECTION METHOD CLEAN CATCH
[2019-12-01 16:59] LABS: MUCOUS Present /lpf; PH 5 (5-8); SQUAMOUS EPITHELIAL 0-2 /hpf; URINE APPEARANCE Hazy; URINE BACTERIA Occasional /hpf; URINE BILIRUBIN Negative (NEGATIVE); URINE BLOOD 1+ (NEGATIVE); URINE COLOR Amber; URINE GLUCOSE Negative (NEGATIVE); URINE KETONE Trace (NEGATIVE); URINE LEUKOCYTE ESTERASE 3+ (NEGATIVE); URINE NITRATE Negative (NEGATIVE); URINE PROTEIN(semi-quant) 1+ (NEGATIVE); URINE UROBILINOGEN >=4.0 mg/dL (NEGATIVE)
[2019-12-01] MEDS ORDERED: CEPHALEXIN500 M1 PO (17:47)
[2019-12-01 17:58] VITALS: BP 119/58; PULSE 85; TEMP 98.1
== END 2019-12-01 17:31 | disposition home or self-care (01) ==
LOC: COL.ER 14:58
PROVIDERS: Emergency Medicine
DX: N39.0 Urinary tract infection, site not specified (principal); Z88.0 Allergy status to penicillin; Z88.2 Allergy status to sulfonamides; Z88.8 Allergy status to other drugs, medicaments and biological substances; Z85.6 Personal history of leukemia
CPT/HCPCS: J0696; J7030

== ENCOUNTER 2019-12-04 16:09 | Inpatient (IN) | payer MEDICARE, OTHER ==
[~2019-12-04] VITALS: Ht 170.2 cm; Wt 81.4 kg
[2019-12-04 17:10] LABS: COLLECTION METHOD CLEAN CATCH
[2019-12-04 17:12] LABS: BASO % 0.5 % (0.0-2.0); EOS # 0.1 (0.0-0.7); GRAN # 1.7 (1.4-6.5); GRAN % 40.7 % (42.2-75.2); INR 1.2 (0.8-3.0); LYMPH # 1.6 (1.2-3.4); LYMPH % 38.8 % (20.0-51.0); MEAN CELL VOLUME 111 fl (80.0-100.0); MEAN CORPUSCULAR HEMOGLOBIN 37 pg (27.0-31.0); MEAN CORPUSCULAR HGB CONC 33 g/dl (33.0-37.0); MEAN PLATELET VOLUME 9.6 fl (7.4-10.4); MONO # 0.7 (0.1-0.6); PLATELET COUNT 159 K/mm3 (130-400); PROTHROMBIN TIME 13.2 SECONDS (9.7-12.8); RED BLOOD COUNT 3.26 M/mm3 (4.10-5.30); REDCELL DISTRIBUTION WIDTH-CV 13.4 % (11.5-14.5)
[2019-12-04 17:15] LABS: PARTIAL THROMBOPLASTIN TIME 31.7 SECONDS (26.0-37.0)
[2019-12-04 17:16] LABS: HEMATOCRIT 36.3 % (37.0-47.0)
[2019-12-04 17:19] LABS: ALANINE AMINOTRANSFERASE 43 U/L (4-34); ALBUMIN 3.5 gm/dL (3.5-5.0); ALKALINE PHOSPHATASE 54 U/L (50-136); ANION GAP 5 mmol/L (7-16); AST,SGOT 60 U/L (15-37); BILIRUBIN,TOTAL 1.6 mg/dL (0.0-1.0); BLOOD UREA NITROGEN 12 mg/dL (7-17); CALCIUM 8.4 mg/dL (8.4-10.2); CARBON DIOXIDE 27 mmol/L (22-30); CHLORIDE 100 mmol/L (98-107); CREATININE, serum 0.58 (0.52-1.25); GLUCOSE 109 mg/dL (74-106); POTASSIUM 3.5 mmol/L (3.4-5.0); SODIUM 132 mmol/L (137-145); TOTAL PROTEIN 6.9 gm/dL (6.4-8.2)
[2019-12-04 17:31] LABS: TROPONIN-I < 0.012 ng/mL (0.000-0.035)
[2019-12-04 17:40] LABS: ARTERIAL BLD GAS O2 SATURATION 96.2 % (92-100); ARTERIAL BLD GAS TCO2 CT 24.4; ARTERIAL BLOOD GAS BASE EXCESS -0.6 (-2-2); ARTERIAL BLOOD GAS HCO3 23.3 meq/L (22-26); ARTERIAL BLOOD GAS PCO2 35.8 mmHg (35-45); ARTERIAL BLOOD GAS PO2 85.8 mmHg (80-100); ARTERIAL BLOOD GAS pH 7.43 (7.35-7.45)
[2019-12-04 17:43] LABS: MUCOUS Present /lpf; PH 6 (5-8); SQUAMOUS EPITHELIAL 0-2 /hpf; URINE APPEARANCE Clear; URINE BACTERIA None Seen /hpf; URINE BILIRUBIN Negative (NEGATIVE); URINE BLOOD Negative (NEGATIVE); URINE CALCIUM OXALATE CRYSTAL Present /hpf; URINE COLOR Amber; URINE GLUCOSE Negative (NEGATIVE); URINE KETONE Trace (NEGATIVE); URINE LEUKOCYTE ESTERASE 1+ (NEGATIVE); URINE NITRATE Negative (NEGATIVE); URINE PROTEIN(semi-quant) Negative (NEGATIVE); URINE UROBILINOGEN >=4.0 mg/dL (NEGATIVE)
[2019-12-04] MEDS ORDERED: MACROBID 1100 MG/CAP PO (18:18)
[2019-12-04] MEDS ORDERED: DAPSONE 100MG100 MG PO (18:19)
[2019-12-04] MEDS ORDERED: ZOFRAN 4MG T4 MG/TAB PO (18:20)
[2019-12-04] MEDS ORDERED: MIRTAZAPINE7.5 MG PO (18:24)
--- NOTE | 2019-12-04 20:00 | NUR ---
Received report from ED MIRA Rodriguez.
[2019-12-04 21:04] VITALS: BP 113/57; PULSE 78; TEMP 97.6
--- NOTE | 2019-12-04 21:05 | NUR ---
PT arrived to medical unit room 357 in stable condition.
[2019-12-04] MEDS ORDERED: NORVASC 5MG5 MG/TAB PO (21:44)
[2019-12-04] MEDS ORDERED: ZOVIRAX800 MG PO (21:45)
--- NOTE | 2019-12-04 22:00 | NUR ---
ERIC Cervantes seen pt. A/O x4. Denies any discomfort, SOB, or weakness at this time. Verbal. SBA with use of walker. Pt able to to get out of bed w/o help. Orders in place and carried out. Fluids infusing to LH, intact, dressing CDI. Tele monior in place, leads checked. No skin issues. On 2LO2NC. Pt does not use O2 at baseline. SCD in place to BLE. Continuous pulse ox in place. Meds administered. Pt aware to call staff when she needs to use BR. Call light within reach.
[2019-12-04 22:02] LABS: MAGNESIUM 2.1 mg/dL (1.6-2.3); PHOSPHOROUS 3.7 mg/dL (2.5-4.5)
[2019-12-05] VITALS (8 sets, daily range): BP systolic 104–125; BP diastolic 50–57; PULSE 68–82; TEMP 97.9–98.5
--- NOTE | 2019-12-05 06:24 | NUR ---
PT made no complaints during this shift. NPO midnight. Remains on 3LO2NC and on cont pulse ox. Call light within reach.
[2019-12-05 06:55] LABS: BASO % 0.8 % (0.0-2.0); EOS # 0.1 (0.0-0.7); EOS % 5.3 % (0-4.0); GRAN # 1.1 (1.4-6.5); GRAN % 40.9 % (42.2-75.2); HEMOGLOBIN 10.4 g/dl (12.5-16.0); LYMPH # 0.9 (1.2-3.4); LYMPH % 34.8 % (20.0-51.0); MEAN CELL VOLUME 112 fl (80.0-100.0); MEAN CORPUSCULAR HEMOGLOBIN 37 pg (27.0-31.0); MEAN CORPUSCULAR HGB CONC 33 g/dl (33.0-37.0); MEAN PLATELET VOLUME 9.9 fl (7.4-10.4); MONO # 0.5 (0.1-0.6); MONO % 17.8 % (1.7-9.3); PLATELET COUNT 166 K/mm3 (130-400); REDCELL DISTRIBUTION WIDTH-CV 13.4 % (11.5-14.5)
[2019-12-05 06:59] LABS: HEMATOCRIT 31.3 % (37.0-47.0)
[2019-12-05 07:03] LABS: ALBUMIN 2.9 gm/dL (3.5-5.0); BILIRUBIN,TOTAL 1.3 mg/dL (0.0-1.0); CALCIUM 7.9 mg/dL (8.4-10.2); CREATININE, serum 0.47 (0.52-1.25); POTASSIUM 3.4 mmol/L (3.4-5.0); TOTAL PROTEIN 5.9 gm/dL (6.4-8.2)
--- NOTE | 2019-12-05 07:09 | NUR ---
Report given to MIRA Watson and MIRA Hanley.
--- NOTE | 2019-12-05 07:42 | NUR ---
BED SIDE REPORT RECIEVED FROM PRODUCT MARKETING SPECIALIST NURSE, PT RESTING IN BED AT THIS TIME.
--- NOTE | 2019-12-05 10:15 | NUR ---
Pt resting in bed, IV was found out of the left hand. IV was still attached to fluids and was hung on IV pole. Left hand had bandage over the site. Pt stated that she doesnt remember how it came out or who put the bandage on. New IV was placed in the left forearm by MIRA Henley. pt denies any pain, cough or shortness of breath. O2 sat. is 90 on 3 liters. no other needs at this time.
--- NOTE | 2019-12-05 11:54 | NUR ---
Pt down to MRI by wheelchair.
--- NOTE | 2019-12-05 13:08 | NUR ---
SW met with patient to complete intake. Patient states that she lives at home with her spouse Delmar [phone]. Patient states that she does not utilize any DME and is independent with her ADL's. Patient states that her PCP is Dr. Dugan, she obtains her medications from [facility] and that she is able to afford her medications. Patient states that she has listed her son Ji Rendon [phone] as her DPOA-HC. She states that she has the documentation at home. Patient states that she plans to go back to her home upon discharge and does not think that she will need any services upon discharge. SW provided information in regards to services if needed upon DC. SW will continue to follow.
--- NOTE | 2019-12-05 21:02 | NUR ---
Received report from MIRA Way and MIRA Watson. Denies any SOB or discomfort at this time. On 3LO2NC. Tele monitor in place, leads checked. Scheduled meds administered. No concerns at this time. Call light within reach. Pt able to get out of bed unassisted and ambulate to BR well. IVF infusing to LFA, dressing CDI, intact. Needs met at this time.
[2019-12-06 03:01] VITALS: BP 117/57; PULSE 75; TEMP 97.7
--- NOTE | 2019-12-06 05:56 | NUR ---
Pt uneventful during this shift. Call light within reach.
--- NOTE | 2019-12-06 06:49 | NUR ---
Report given to MIRA Watson.
[2019-12-06 07:11] LABS: BASO % 0.7 % (0.0-2.0); EOS # 0.1 (0.0-0.7); EOS % 4.7 % (0-4.0); GRAN # 1.3 (1.4-6.5); GRAN % 43.8 % (42.2-75.2); HEMOGLOBIN 10.3 g/dl (12.5-16.0); MEAN CELL VOLUME 113 fl (80.0-100.0); MEAN CORPUSCULAR HEMOGLOBIN 37 pg (27.0-31.0); MEAN CORPUSCULAR HGB CONC 33 g/dl (33.0-37.0); MEAN PLATELET VOLUME 9.9 fl (7.4-10.4); MONO # 0.5 (0.1-0.6); MONO % 16.8 % (1.7-9.3); PLATELET COUNT 160 K/mm3 (130-400); REDCELL DISTRIBUTION WIDTH-CV 13.7 % (11.5-14.5)
[2019-12-06 07:13] VITALS: BP 119/58; PULSE 69; TEMP 98.3
[2019-12-06 07:14] LABS: ALBUMIN 2.9 gm/dL (3.5-5.0); BILIRUBIN,TOTAL 1.2 mg/dL (0.0-1.0); CALCIUM 8.1 mg/dL (8.4-10.2); CHOLESTEROL RISK RATIO 5.3; CREATININE, serum 0.51 (0.52-1.25); MAGNESIUM 1.9 mg/dL (1.6-2.3); POTASSIUM 3.5 mmol/L (3.4-5.0); TOTAL PROTEIN 5.9 gm/dL (6.4-8.2)
[2019-12-06 07:16] LABS: HEMATOCRIT 31.7 % (37.0-47.0)
[2019-12-06] MEDS ORDERED: LIPITOR 10MG10 MG PO (09:35)
[2019-12-06] MEDS ORDERED: ASPIRIN 81M81 MG/TA2 PO (09:36)
--- NOTE | 2019-12-06 09:37 | NUR ---
Pt assessment completed and charted. Medications administered per JUN. Pt sitting in recliner. Pt A&O, on 3L NC, denies SOB, LS cta. RT to do ex ox for pt to DC today. Heart RRR, BS active, pulses strong bilaterally. No edema noted. Pt denies pain, N/V/D, dizziness, chest pain. No concerns expressed at this time. LFA INT IV flushes w/o complications.
--- NOTE | 2019-12-06 10:15 | NUR ---
PT WALKED ON ROOM AIR APPROX 50 FEET ON ROOM AIR. NO COMPLAINTS OF DYSPNEA OR DIFFICULTY WALKING OR BREATHING. PT HAS NO INTEREST IN HOME O2 @ THIS TIME. NOTIFIED.
[2019-12-06 12:15] VITALS: BP 101/56; PULSE 77; TEMP 97.6
--- NOTE | 2019-12-06 13:15 | NUR ---
Pt discharge instructions discussed and reviewed w/ patient who verbalized understanding, all questions answered. LFA INT IV dc'd w/ catheter tip intact and no complications noted. Pt escorted out to ER entrance w/ waiting by WC and this nurse.
== END 2019-12-06 13:16 | disposition home or self-care (01) | DRG 69 ==
LOC: COL.ER 16:09 → MEDICAL 18:59
PROVIDERS: Emergency Medicine; Internal Medicine; Nurse Practitioner Family; ADMIT Hospitalist
DX: G45.9 Transient cerebral ischemic attack, unspecified (principal); J98.11 Atelectasis; Z94.81 Bone marrow transplant status; E87.1 Hypo-osmolality and hyponatremia; N39.0 Urinary tract infection, site not specified; C92.10 Chronic myeloid leukemia, BCR/ABL-positive, not having achieved remission; R47.1 Dysarthria and anarthria; R09.02 Hypoxemia; D53.9 Nutritional anemia, unspecified; R74.0 Nonspecific elevation of levels of transaminase and lactic acid dehydrogenase [LDH]; I10 Essential (primary) hypertension; E78.5 Hyperlipidemia, unspecified; Z87.11 Personal history of peptic ulcer disease; Z87.891 Personal history of nicotine dependence; Z88.2 Allergy status to sulfonamides; Z88.0 Allergy status to penicillin
CPT/HCPCS: A9284; A9585; C9113; G0378; J0696; J7030; Q9967

== ENCOUNTER 2021-01-23 07:54 | Outpatient (CLI) | payer MEDICARE, OTHER ==
[~2021-01-23] VITALS: Ht 167.6 cm; Wt 95.2 kg
[~2021-01-23 07:54] MED LIST changes: +DAPSONE 100MG100 MG PO; +LIPITOR 10MG10 MG PO; +MACROBID 1100 MG/CAP PO; +MIRTAZAPINE7.5 MG PO; +NORVASC 5MG5 MG/TAB PO; +ZOVIRAX800 MG PO
[2021-01-23] MEDS ORDERED: LIPITOR 10MG10 MG PO (08:22)
[2021-01-23] MEDS ORDERED: VITAMINC1000TA PO (08:22)
[2021-01-23] MEDS ORDERED: VITAMIN D31000 I1 PO (08:22)
[2021-01-23] MEDS ORDERED: NORVASC2.5 MG PO (08:23)
[2021-01-23] MEDS ORDERED: ASPIRIN 81M81 MG/TA2 PO (08:23)
[2021-01-23 08:24] VITALS: BP 165/94; PULSE 75; TEMP 98
--- NOTE | 2021-01-23 09:25 | NUR ---
Patient arrives to [facility] via cart, accompanied by TRIMMER SORTER Farzad. She is alert and oriented, laying flat per order. PIV to TKO. She denies pain or nausea. Bandage on operative site is clean/dry/intact. Will continue to monitor.
[2021-01-23 09:35] VITALS: BP 115/52; PULSE 80; TEMP 98
--- NOTE | 2021-01-23 09:35 | NUR ---
Patient's flat time is complete. HOB raised for patient to eat/drink. She requests and receives juice and a muffin. Lab is called to draw CBC that is ordered.
[2021-01-23 09:45] VITALS: BP 148/76; PULSE 58
--- NOTE | 2021-01-23 09:45 | NUR ---
Patient is resting comfortably. Bandaid is clean/dry/intact. She denies pain or nausea. Tolerating PO well. Waiting on labs to result prior to discharge.
[2021-01-23 09:52] LABS: BASO % 0.7 % (0.0-2.0); EOS # 0.1 K/mm3 (0.0-0.7); EOS % 1.6 % (0-4.0); GRAN # 3.2 K/mm3 (1.4-6.5); HEMATOCRIT 41.8 % (37.0-47.0); HEMOGLOBIN 14.1 g/dl (12.5-16.0); LYMPH # 0.6 K/mm3 (1.2-3.4); MEAN CELL VOLUME 99 fl (80.0-100.0); MEAN CORPUSCULAR HEMOGLOBIN 34 pg (27.0-31.0); MEAN CORPUSCULAR HGB CONC 34 g/dl (33.0-37.0); MEAN PLATELET VOLUME 9.1 fl (7.4-10.4); MONO # 0.5 K/mm3 (0.1-0.6); MONO % 10.5 % (1.7-9.3); PLATELET COUNT 174 K/mm3 (130-400); RED BLOOD COUNT 4.21 M/mm3 (4.10-5.30); REDCELL DISTRIBUTION WIDTH-CV 12.2 % (11.5-14.5)
--- NOTE | 2021-01-23 09:59 | NUR ---
Dr. Pena is called to notify of out of range lab results on CBC. No further orders are received.
[2021-01-23 10:00] VITALS: BP 133/66; PULSE 63
--- NOTE | 2021-01-23 10:28 | NUR ---
Patient has met discharge criteria. Discharge instructions are discussed. She denies any questions and verbalizes understanding. PIV is removed with catheter intact and hemostasis achieved. She changes to her clothing independently. She is escorted to the exit via wheelchair by staff and discharged to the home to the care of her . He drives her home in a private vehicle at 1028.
== END 2021-01-23 10:28 | disposition home or self-care (01) ==
LOC: SDCO 07:54
PROVIDERS: Pathology Anatomic Pathology & Clinical Pathology
DX: Z20.822 Contact with and (suspected) exposure to COVID-19 (principal)
CPT/HCPCS: J2704; J7120